=== PATIENT | male | born 1950 | race Caucasian/White ===

== ENCOUNTER → 2019-09-20 | Outpatient (CLI) | payer OTHER ==
[~2019-09-20] MED LIST: Aspirin EC81 MG; Glucophage1000 MG; INSULANPEN
[2019-09-20 12:03] LABS: BASOPHILS ABSOLUTE AUTO 0.01 K/mm3 (0.00-0.23); BASOPHILS PERCENT AUTO 0 % (0-2); EOSINOPHILS PERCENT AUTO 0 % (0-6); Hematocrit 39.2 % (37.0-53.0); Hemoglobin 13.6 g/dL (13.5-17.5); IMMATURE GRAN ABSOLUTE AUTO 0.04 K/mm3 (0.00-0.10); IMMATURE GRAN PERCENT AUTO 1 % (0-1); LYMPHOCYTES ABSOLUTE AUTO 0.56 K/mm3 (0.84-5.20); LYMPHOCYTES PERCENT AUTO 11 % (21-46); MONOCYTES ABSOLUTE AUTO 0.36 K/mm3 (0.16-1.47); MONOCYTES PERCENT AUTO 7 % (4-13); Mean Corpuscular HGB 30.5 pg (26.0-34.0); Mean Corpuscular HGB Conc 34.7 g/dL (31.5-36.5); Mean Corpuscular Volume 88 fL (80-100); Mean Platelet Volume 10.1 fL (9.1-12.4); NEUTROPHILS ABSOLUTE AUTO 4.21 K/mm3 (1.96-9.15); NEUTROPHILS PERCENT AUTO 81 % (41-73); Platelet Count 178 K/mm3 (150-400); RDW Coefficient Variation 11.9 % (11.7-14.2); RDW Standard Deviation 37.9 fL (35.1-46.3); Red Blood Cell Count 4.46 M/mm3 (4.30-5.90); White Blood Cell Count 5.18 K/mm3 (4.00-11.30)
== END | disposition home or self-care (01) ==
LOC: LAB SHORT 11:29 → LAB 11:29
PROVIDERS: Registered Nurse Oncology
DX: C34.90 Malignant neoplasm of unspecified part of unspecified bronchus or lung (principal)
CPT/HCPCS: 85025

== ENCOUNTER → 2019-10-17 | Outpatient (CLI) | payer OTHER ==
[~2019-10-17] MED LIST changes: +LINE600 PO; +Nortriptyline H50 MG PO
[2019-10-17 11:33] LABS: Hematocrit 29.2 % (37.0-53.0); Hemoglobin 10.2 g/dL (13.5-17.5); Mean Corpuscular HGB 29.9 pg (26.0-34.0); Mean Corpuscular HGB Conc 34.9 g/dL (31.5-36.5); Mean Corpuscular Volume 86 fL (80-100); Platelet Count 104 K/mm3 (150-400); RDW Coefficient Variation 12.7 % (11.7-14.2); RDW Standard Deviation 37.1 fL (35.1-46.3); Red Blood Cell Count 3.41 M/mm3 (4.30-5.90)
[2019-10-17 11:37] LABS: Alanine Aminotransfer (ALT/SGP 92 U/L (12-78); Albumin, Blood 3.3 g/dL (3.4-5.0); Albumin/Globulin Ratio 0.9 (0.8-1.8); Alk Phos 63 U/L (50-136); Anion Gap 16 mmol/L (6-16); Aspartate Aminotrans (AST/SGOT 48 U/L (12-37); BASOPHILS ABSOLUTE AUTO 0.01 K/mm3 (0.00-0.23); BASOPHILS PERCENT AUTO 2 % (0-2); Bilirubin, Total 1.3 mg/dL (0.1-1.0); Blood Urea Nitrogen 48 mg/dL (8-24); Bun/Creatinine Ratio 44.9 (12.0-20.0); CO2, Blood 20 mmol/L (21-32); Calcium, Blood 8.5 mg/dL (8.5-10.1); Chloride, Blood 96 mmol/L (98-108); Creatinine, Blood 1.07 mg/dL (0.60-1.20); EOSINOPHILS ABSOLUTE AUTO 0.01 K/mm3 (0.00-0.68); EOSINOPHILS PERCENT AUTO 2 % (0-6); Globulin, Blood 3.5 g/dL (2.2-4.0); Glomerular Filtration Rate >60 (60-); Glucose, Blood 299 mg/dL (70-99); IMMATURE GRAN ABSOLUTE AUTO 0.01 K/mm3 (0.00-0.10); IMMATURE GRAN PERCENT AUTO 2 % (0-1); LYMPHOCYTES ABSOLUTE AUTO 0.25 K/mm3 (0.84-5.20); LYMPHOCYTES PERCENT AUTO 38 % (21-46); MONOCYTES ABSOLUTE AUTO 0.08 K/mm3 (0.16-1.47); MONOCYTES PERCENT AUTO 12 % (4-13); NEUTROPHILS PERCENT AUTO 46 % (41-73); Potassium, Blood 4.4 mmol/L (3.5-5.5); Sodium, Blood 132 mmol/L (136-145); Total Protein, Blood 6.8 g/dL (6.4-8.2); White Blood Cell Count 0.66 K/mm3 (4.00-11.30)
== END ==
LOC: LAB SHORT 11:03 → LAB 11:03
PROVIDERS: Internal Medicine Hematology & Oncology
DX: C34.90 Malignant neoplasm of unspecified part of unspecified bronchus or lung (principal)
CPT/HCPCS: 80053; 85025

== ENCOUNTER 2019-10-21 19:20 | Emergency (ER) | payer OTHER ==
[~2019-10-21] VITALS: Ht 182.9 cm; Wt 86.2 kg
[~2019-10-21 19:20] MED LIST changes: -LINE600 PO; -Nortriptyline H50 MG PO
[2019-10-21 20:17] LABS: Hematocrit 26.6 % (37.0-53.0); Hemoglobin 9.5 g/dL (13.5-17.5); Mean Corpuscular HGB 30.1 pg (26.0-34.0); Mean Corpuscular HGB Conc 35.7 g/dL (31.5-36.5); Mean Platelet Volume 12.6 fL (9.1-12.4); RDW Coefficient Variation 12.4 % (11.7-14.2); RDW Standard Deviation 37.2 fL (35.1-46.3); Red Blood Cell Count 3.16 M/mm3 (4.30-5.90); White Blood Cell Count 5.13 K/mm3 (4.00-11.30)
[2019-10-21 20:18] LABS: Mean Corpuscular Volume 84 fL (80-100)
[2019-10-21 20:19] LABS: Platelet Count 35 K/mm3 (150-400)
[2019-10-21] MEDS ORDERED: Nortriptyline H50 MG PO (20:30)
[2019-10-21] MEDS ORDERED: LINE600 PO (20:32)
[2019-10-21 20:33] LABS: Alanine Aminotransfer (ALT/SGP 87 U/L (12-78); Albumin, Blood 3.3 g/dL (3.4-5.0); Alk Phos 67 U/L (50-136); Anion Gap 12 mmol/L (6-16); Aspartate Aminotrans (AST/SGOT 39 U/L (12-37); Bilirubin, Total 0.6 mg/dL (0.1-1.0); Blood Urea Nitrogen 33 mg/dL (8-24); CO2, Blood 22 mmol/L (21-32); Calcium, Blood 8.1 mg/dL (8.5-10.1); Chloride, Blood 100 mmol/L (98-108); Creatinine, Blood 0.94 mg/dL (0.60-1.20); Globulin, Blood 3.3 g/dL (2.2-4.0); Glomerular Filtration Rate >60 (60-); Glucose, Blood 149 mg/dL (70-99); Potassium, Blood 3.6 mmol/L (3.5-5.5); Sodium, Blood 134 mmol/L (136-145); Total Protein, Blood 6.6 g/dL (6.4-8.2)
[2019-10-21 20:51] LABS: Troponin I <0.015 ng/mL (0.000-0.040)
[2019-10-21 20:53] LABS: Magnesium, Blood 1.1 mg/dL (1.6-2.4)
[2019-10-21 20:55] LABS: BAND PERCENT MAN 6 % (0-8); BASOPHILS PERCENT MAN 0 % (0-2); EOSINOPHILS ABSOLUTE MAN 0.15 K/mm3 (0.00-0.68); EOSINOPHILS PERCENT MAN 3 % (0-6); LYMPHOCYTES ABSOLUTE MAN 1.28 K/mm3 (0.84-5.20); LYMPHOCYTES PERCENT MAN 25 % (21-46); MONOCYTES ABSOLUTE MAN 0.35 K/mm3 (0.16-1.47); MONOCYTES PERCENT MAN 7 % (4-13); NEUTROPHILS ABSOLUTE MAN 3.33 K/mm3 (1.96-9.15); SEG NEUTROPHILS PERCENT MAN 59 % (41-73); TOTAL CELLS COUNTED 100
[2019-10-21 21:36] LABS: Influenza A Negative (NEGATIVE); Influenza B Negative (NEGATIVE)
[2019-10-21 22:53] LABS: Source, Urine Clean Catch
[2019-10-21 22:55] LABS: Bilirubin, Urine Neg (Neg); Blood, Urine Neg (Neg); Glucose Qualitative, Urine Neg (Neg); Ketones, Urine 1+ (Neg); Leukocyte Esterase, Urine Neg (Neg); Nitrite, Urine Neg (Neg); Protein, Urine Neg (Neg); Specific Gravity, Urine 1.015 (1.003-1.022); Urobilinogen, Urine 1+ (Normal)
[2019-10-21 23:00] LABS: Appearance, Urine Clear (Clear); Color, Urine Yellow (P-Yellow)
== END 2019-10-22 00:41 | disposition home or self-care (01) ==
LOC: ER 19:20
PROVIDERS: Emergency Medicine; Physician Assistant
DX: E86.0 Dehydration (principal); E11.9 Type 2 diabetes mellitus without complications; Z79.4 Long term (current) use of insulin; Z88.0 Allergy status to penicillin
CPT/HCPCS: 36415; 71046; 80053; 81003; 83605; 83735; 83880; 84145; 84484; 85025; 87804; 93005; 93010; 96361; 96365; 96366; 99284-25; J3475; J7030

== ENCOUNTER 2019-10-31 03:21 | Observation (INO) | payer OTHER ==
[~2019-10-31] VITALS: Ht 180.3 cm; Wt 89.1 kg
[~2019-10-31 03:21] MED LIST changes: -Aspirin EC81 MG; +Aspirin EC81 MG PO; -Glucophage1000 MG; +Glucophage1000 MG PO; -INSULANPEN; +INSULANPEN SC; +LINE600 PO; +Nortriptyline H50 MG PO
[2019-10-31 03:57] LABS: BASOPHILS ABSOLUTE AUTO 0.02 K/mm3 (0.00-0.23); BASOPHILS PERCENT AUTO 0 % (0-2); EOSINOPHILS ABSOLUTE AUTO 0.04 K/mm3 (0.00-0.68); EOSINOPHILS PERCENT AUTO 1 % (0-6); Hematocrit 20.8 % (37.0-53.0); Hemoglobin 7.2 g/dL (13.5-17.5); IMMATURE GRAN ABSOLUTE AUTO 0.25 K/mm3 (0.00-0.10); IMMATURE GRAN PERCENT AUTO 5 % (0-1); LYMPHOCYTES ABSOLUTE AUTO 1.02 K/mm3 (0.84-5.20); LYMPHOCYTES PERCENT AUTO 20 % (21-46); MONOCYTES ABSOLUTE AUTO 0.65 K/mm3 (0.16-1.47); MONOCYTES PERCENT AUTO 13 % (4-13); Mean Corpuscular HGB 31.2 pg (26.0-34.0); Mean Corpuscular HGB Conc 34.6 g/dL (31.5-36.5); Mean Corpuscular Volume 90 fL (80-100); Mean Platelet Volume 9.7 fL (9.1-12.4); NEUTROPHILS ABSOLUTE AUTO 3.19 K/mm3 (1.96-9.15); NEUTROPHILS PERCENT AUTO 62 % (41-73); NRBC ABSOLUTE 0.03 K/mm3 (0.00-0.02); NRBC Auto 0.6 /100 WBC (0.0-0.2); Platelet Count 120 K/mm3 (150-400); RDW Coefficient Variation 15.3 % (11.7-14.2); RDW Standard Deviation 39.8 fL (35.1-46.3); Red Blood Cell Count 2.31 M/mm3 (4.30-5.90); White Blood Cell Count 5.17 K/mm3 (4.00-11.30)
[2019-10-31 04:18] LABS: Alanine Aminotransfer (ALT/SGP 54 U/L (12-78); Albumin, Blood 2.8 g/dL (3.4-5.0); Albumin/Globulin Ratio 0.8 (0.8-1.8); Alk Phos 65 U/L (50-136); Anion Gap 9 mmol/L (6-16); Aspartate Aminotrans (AST/SGOT 38 U/L (12-37); Bilirubin, Total 0.5 mg/dL (0.1-1.0); Blood Urea Nitrogen 18 mg/dL (8-24); Bun/Creatinine Ratio 21.3 (12.0-20.0); CO2, Blood 27 mmol/L (21-32); Calcium, Blood 7.6 mg/dL (8.5-10.1); Chloride, Blood 102 mmol/L (98-108); Creatinine, Blood 0.85 mg/dL (0.60-1.20); Globulin, Blood 3.5 g/dL (2.2-4.0); Glomerular Filtration Rate >60 (60-); Glucose, Blood 142 mg/dL (70-99); Potassium, Blood 3.7 mmol/L (3.5-5.5); Sodium, Blood 138 mmol/L (136-145); Total Protein, Blood 6.3 g/dL (6.4-8.2); Troponin I <0.015 ng/mL (0.000-0.040)
[2019-10-31 07:50] LABS: Source, Urine Clean Catch
[2019-10-31 07:54] LABS: Adenovirus Not Detected (NOT DETECT); Bordetella pertussis Not Detected (NOT DETECT); Chlamydophila pneumoniae Not Detected (NOT DETECT); Coronavirus 229E Not Detected (NOT DETECT); Coronavirus HKU1 Not Detected (NOT DETECT); Coronavirus NL63 Not Detected (NOT DETECT); Coronavirus OC43 Not Detected (NOT DETECT); Human Metapneumovirus Not Detected (NOT DETECT); Human Rhinovirus/Enterovirus Not Detected (NOT DETECT); Influenza A/2009-H1 Not Detected (NOT DETECT); Influenza A/H1 Not Detected (NOT DETECT); Influenza A/H3 Not Detected (NOT DETECT); Influenza B Not Detected (NOT DETECT); Parainfluenza Virus 1 Not Detected (NOT DETECT); Parainfluenza Virus 2 Not Detected (NOT DETECT); Parainfluenza Virus 3 Not Detected (NOT DETECT); Parainfluenza Virus 4 Not Detected (NOT DETECT); Respiratory Syncytial Virus Not Detected (NOT DETECT)
[2019-10-31 07:55] LABS: Mycoplasma pneumoniae Not Detected (NOT DETECT)
[2019-10-31 07:56] LABS: Bilirubin, Urine Neg (Neg); Blood, Urine Neg (Neg); Glucose Qualitative, Urine Neg (Neg); Ketones, Urine Neg (Neg); Leukocyte Esterase, Urine Neg (Neg); Nitrite, Urine Neg (Neg); Protein, Urine Neg (Neg); Urobilinogen, Urine 1+ (Normal)
[2019-10-31 07:57] LABS: Appearance, Urine Clear (Clear); Color, Urine Yellow (P-Yellow)
[2019-10-31] MEDS ORDERED: SILD50TA PO (11:59)
[2019-10-31] MEDS ORDERED: LISI5 PO (11:59)
[2019-10-31] MEDS ORDERED: IBUP200 PO (12:00)
[2019-10-31] MEDS ORDERED: BASAGLAR K100 UNIT/1 SL (14:32)
[2019-10-31] MEDS ORDERED: ALBU90OI INH (14:33)
--- NOTE | 2019-10-31 20:05 | NUR ---
a+o, here for temp spike at home, afebrile here, call light in reach, bolus given, bed in low position, will order retake of lactic acid for this evening, called for cv, bsr shared with noc nurse
[2019-11-01 04:58] LABS: BASOPHILS ABSOLUTE AUTO 0.01 K/mm3 (0.00-0.23); BASOPHILS PERCENT AUTO 0 % (0-2); EOSINOPHILS ABSOLUTE AUTO 0.01 K/mm3 (0.00-0.68); EOSINOPHILS PERCENT AUTO 0 % (0-6); Hematocrit 21.3 % (37.0-53.0); Hemoglobin 7.2 g/dL (13.5-17.5); IMMATURE GRAN ABSOLUTE AUTO 0.23 K/mm3 (0.00-0.10); IMMATURE GRAN PERCENT AUTO 5 % (0-1); LYMPHOCYTES ABSOLUTE AUTO 0.91 K/mm3 (0.84-5.20); LYMPHOCYTES PERCENT AUTO 20 % (21-46); MONOCYTES ABSOLUTE AUTO 0.56 K/mm3 (0.16-1.47); MONOCYTES PERCENT AUTO 12 % (4-13); Mean Corpuscular HGB 30.4 pg (26.0-34.0); Mean Corpuscular HGB Conc 33.8 g/dL (31.5-36.5); Mean Corpuscular Volume 90 fL (80-100); Mean Platelet Volume 9.7 fL (9.1-12.4); NEUTROPHILS ABSOLUTE AUTO 2.85 K/mm3 (1.96-9.15); NEUTROPHILS PERCENT AUTO 62 % (41-73); Platelet Count 119 K/mm3 (150-400); RDW Coefficient Variation 15.7 % (11.7-14.2); RDW Standard Deviation 40.7 fL (35.1-46.3); Red Blood Cell Count 2.37 M/mm3 (4.30-5.90); White Blood Cell Count 4.57 K/mm3 (4.00-11.30)
[2019-11-01 05:19] LABS: Alanine Aminotransfer (ALT/SGP 44 U/L (12-78); Albumin, Blood 2.4 g/dL (3.4-5.0); Albumin/Globulin Ratio 0.8 (0.8-1.8); Alk Phos 56 U/L (50-136); Anion Gap 7 mmol/L (6-16); Aspartate Aminotrans (AST/SGOT 23 U/L (12-37); Bilirubin, Total 0.5 mg/dL (0.1-1.0); Blood Urea Nitrogen 16 mg/dL (8-24); Bun/Creatinine Ratio 20.2 (12.0-20.0); CO2, Blood 26 mmol/L (21-32); Calcium, Blood 7.5 mg/dL (8.5-10.1); Chloride, Blood 108 mmol/L (98-108); Creatinine, Blood 0.79 mg/dL (0.60-1.20); Globulin, Blood 3.2 g/dL (2.2-4.0); Glomerular Filtration Rate >60 (60-); Glucose, Blood 111 mg/dL (70-99); Magnesium, Blood 1.4 mg/dL (1.6-2.4); Sodium, Blood 141 mmol/L (136-145); Total Protein, Blood 5.6 g/dL (6.4-8.2)
--- NOTE | 2019-11-01 08:51 | NUR ---
A+O, BED IN LOW POSITION, CALL LIGHT IN REACH, NO TEMP, LOOSE STOOL NOT ABLE TO COLLECT DUE TO MIXING WITH URINE, HAT AND URINAL IN PLACE, COLLECTED RESP SAMPLE, MEDICATED PRESCRIBED DENIES PAIN, WILL CONTINUE TO MONITOR AND TREAT
[2019-11-01 10:07] LABS: Source, Urine Clean Catch
[2019-11-01 10:34] LABS: Adenovirus Not Detected (NOT DETECT); Bordetella pertussis Not Detected (NOT DETECT); Chlamydophila pneumoniae Not Detected (NOT DETECT); Coronavirus 229E Not Detected (NOT DETECT); Coronavirus HKU1 Not Detected (NOT DETECT); Coronavirus NL63 Not Detected (NOT DETECT); Coronavirus OC43 Not Detected (NOT DETECT); Human Metapneumovirus Not Detected (NOT DETECT); Human Rhinovirus/Enterovirus Not Detected (NOT DETECT); Influenza A/2009-H1 Not Detected (NOT DETECT); Influenza A/H1 Not Detected (NOT DETECT); Influenza A/H3 Not Detected (NOT DETECT); Influenza B Not Detected (NOT DETECT); Mycoplasma pneumoniae Not Detected (NOT DETECT); Parainfluenza Virus 1 Not Detected (NOT DETECT); Parainfluenza Virus 2 Not Detected (NOT DETECT); Parainfluenza Virus 3 Not Detected (NOT DETECT); Parainfluenza Virus 4 Not Detected (NOT DETECT); Respiratory Syncytial Virus Not Detected (NOT DETECT)
[2019-11-01 10:39] LABS: Appearance, Urine Clear (Clear); Bilirubin, Urine Neg (Neg); Blood, Urine Neg (Neg); Color, Urine Yellow (P-Yellow); Glucose Qualitative, Urine 1+ (Neg); Ketones, Urine Neg (Neg); Leukocyte Esterase, Urine Neg (Neg); Nitrite, Urine Neg (Neg); Protein, Urine Neg (Neg); Urobilinogen, Urine NORM (Normal); pH, Urine 6.5 (5.0-8.0)
[2019-11-01] MEDS ORDERED: CEFD300 PO (12:25)
--- NOTE | 2019-11-01 16:27 | NUR ---
A+O, REVIEWED discharge instructions, medications, hospital stay and expectations, discussed home safety and self care, provided written discharge information for home, family escorted pt to car
== END 2019-11-01 16:24 | disposition home or self-care (01) ==
LOC: ER 03:21 → ERHOLD 03:22 → MEDS 14:02 → ENPENDDIS 11-01 10:19 → MEDS 11-01 16:24
PROVIDERS: Emergency Medicine; Nurse Practitioner Acute Care; ADMIT Hospitalist
DX: R50.9 Fever, unspecified (principal); R00.0 Tachycardia, unspecified; D64.9 Anemia, unspecified; E83.42 Hypomagnesemia; E86.0 Dehydration; C34.90 Malignant neoplasm of unspecified part of unspecified bronchus or lung; E11.9 Type 2 diabetes mellitus without complications; Z79.4 Long term (current) use of insulin; Z79.82 Long term (current) use of aspirin; Z79.899 Other long term (current) drug therapy; Z88.0 Allergy status to penicillin; Z87.891 Personal history of nicotine dependence
CPT/HCPCS: 0099U; 36415; 71045; 80053; 81003; 82947; 83605; 83735; 84145; 84484; 85025; 86850; 86900; 86901; 86923; 93005; 93010; 96361; 96365; 96366; 96367; 96375; 96376; 99285-25; A9270-GY; G0378; J0692; J0696; J3370; J3475; J7030; P9016

== ENCOUNTER 2019-11-12 20:07 | Inpatient (IN) | payer OTHER ==
[~2019-11-12] VITALS: Ht 182.9 cm; Wt 86.8 kg
[~2019-11-12 20:07] MED LIST changes: +ALBU90OI INH; +BASAGLAR K100 UNIT/1 SL; +CEFD300 PO; +IBUP200 PO; +LISI5 PO; +SILD50TA PO
[2019-11-12 20:50] LABS: BASOPHILS ABSOLUTE AUTO 0.01 K/mm3 (0.00-0.23); BASOPHILS PERCENT AUTO 0 % (0-2); EOSINOPHILS ABSOLUTE AUTO 0.04 K/mm3 (0.00-0.68); EOSINOPHILS PERCENT AUTO 1 % (0-6); Hematocrit 29.6 % (37.0-53.0); Hemoglobin 10.1 g/dL (13.5-17.5); IMMATURE GRAN ABSOLUTE AUTO 0.28 K/mm3 (0.00-0.10); IMMATURE GRAN PERCENT AUTO 6 % (0-1); LYMPHOCYTES ABSOLUTE AUTO 0.91 K/mm3 (0.84-5.20); LYMPHOCYTES PERCENT AUTO 18 % (21-46); MONOCYTES ABSOLUTE AUTO 0.13 K/mm3 (0.16-1.47); MONOCYTES PERCENT AUTO 3 % (4-13); Mean Corpuscular HGB 31.9 pg (26.0-34.0); Mean Corpuscular HGB Conc 34.1 g/dL (31.5-36.5); Mean Corpuscular Volume 93 fL (80-100); Mean Platelet Volume 10.5 fL (9.1-12.4); NEUTROPHILS ABSOLUTE AUTO 3.65 K/mm3 (1.96-9.15); NEUTROPHILS PERCENT AUTO 73 % (41-73); Platelet Count 130 K/mm3 (150-400); RDW Coefficient Variation 18.5 % (11.7-14.2); RDW Standard Deviation 60.2 fL (35.1-46.3); Red Blood Cell Count 3.17 M/mm3 (4.30-5.90); White Blood Cell Count 5.02 K/mm3 (4.00-11.30)
[2019-11-12 21:06] LABS: International Normalized Ratio 0.96; Prothrombin Time Results 10.3 Sec (9.7-11.5)
[2019-11-12 21:10] LABS: Alanine Aminotransfer (ALT/SGP 81 U/L (12-78); Albumin, Blood 3.2 g/dL (3.4-5.0); Albumin/Globulin Ratio 0.9 (0.8-1.8); Alk Phos 86 U/L (50-136); Anion Gap 9 mmol/L (6-16); Aspartate Aminotrans (AST/SGOT 34 U/L (12-37); Bilirubin, Total 0.5 mg/dL (0.1-1.0); Blood Urea Nitrogen 28 mg/dL (8-24); Bun/Creatinine Ratio 29.4 (12.0-20.0); CO2, Blood 26 mmol/L (21-32); Calcium, Blood 8.4 mg/dL (8.5-10.1); Chloride, Blood 101 mmol/L (98-108); Creatinine, Blood 0.95 mg/dL (0.60-1.20); Globulin, Blood 3.6 g/dL (2.2-4.0); Glomerular Filtration Rate >60 (60-); Glucose, Blood 257 mg/dL (70-99); Potassium, Blood 3.6 mmol/L (3.5-5.5); Sodium, Blood 136 mmol/L (136-145); Total Protein, Blood 6.8 g/dL (6.4-8.2)
[2019-11-13 00:29] LABS: Source, Urine Clean Catch
[2019-11-13 00:32] LABS: Bilirubin, Urine Neg (Neg); Blood, Urine Neg (Neg); Glucose Qualitative, Urine 2+ (Neg); Ketones, Urine Neg (Neg); Leukocyte Esterase, Urine Neg (Neg); Nitrite, Urine Neg (Neg); Protein, Urine Neg (Neg); Urobilinogen, Urine NORM (Normal)
[2019-11-13 00:36] LABS: Appearance, Urine Clear (Clear); Color, Urine Yellow (P-Yellow)
[2019-11-13 04:32] LABS: BASOPHILS ABSOLUTE AUTO 0.01 K/mm3 (0.00-0.23); BASOPHILS PERCENT AUTO 0 % (0-2); EOSINOPHILS ABSOLUTE AUTO 0.04 K/mm3 (0.00-0.68); EOSINOPHILS PERCENT AUTO 1 % (0-6); Hematocrit 26.3 % (37.0-53.0); Hemoglobin 8.9 g/dL (13.5-17.5); IMMATURE GRAN ABSOLUTE AUTO 0.18 K/mm3 (0.00-0.10); IMMATURE GRAN PERCENT AUTO 7 % (0-1); LYMPHOCYTES ABSOLUTE AUTO 0.81 K/mm3 (0.84-5.20); LYMPHOCYTES PERCENT AUTO 29 % (21-46); MONOCYTES ABSOLUTE AUTO 0.08 K/mm3 (0.16-1.47); MONOCYTES PERCENT AUTO 3 % (4-13); Mean Corpuscular HGB 31.4 pg (26.0-34.0); Mean Corpuscular HGB Conc 33.8 g/dL (31.5-36.5); Mean Corpuscular Volume 93 fL (80-100); Mean Platelet Volume 10.6 fL (9.1-12.4); NEUTROPHILS ABSOLUTE AUTO 1.65 K/mm3 (1.96-9.15); NEUTROPHILS PERCENT AUTO 60 % (41-73); Platelet Count 100 K/mm3 (150-400); RDW Coefficient Variation 18.4 % (11.7-14.2); RDW Standard Deviation 60.4 fL (35.1-46.3); Red Blood Cell Count 2.83 M/mm3 (4.30-5.90); White Blood Cell Count 2.77 K/mm3 (4.00-11.30)
[2019-11-13 04:49] LABS: Anion Gap 9 mmol/L (6-16); Blood Urea Nitrogen 25 mg/dL (8-24); Bun/Creatinine Ratio 32.2 (12.0-20.0); CO2, Blood 27 mmol/L (21-32); Chloride, Blood 102 mmol/L (98-108); Creatinine, Blood 0.78 mg/dL (0.60-1.20); Glomerular Filtration Rate >60 (60-); Glucose, Blood 179 mg/dL (70-99); Potassium, Blood 3.7 mmol/L (3.5-5.5); Sodium, Blood 138 mmol/L (136-145)
--- NOTE | 2019-11-13 05:28 | NUR ---
ASSUMED CARE OF PATIENT AT APPROXIMATELY 0010 FROM ED DEANNA Zamora PATIENT ARRIVED TO UNIT VIA STRETCHER; SBA FROM ED TO PCU STRETCHER; PATIENT UNSTEADY REPORTEDLY SINCE STARTING CHEMO TREATMENTS. PATIENT DENIES PAIN, NUMBNESS, TINGLING, DIZZINESS OR NAUSEA. PATIENT REPORTS HE HAS "CHEMO HEAD". ADMISSION COMPLETE. AFEBRILE. NS BOLUS THEN LR PER ORDER. UA AND RESP PANEL SENT. VSS. PATIENT REPROTS HE USES CANE OR WHEELCHAIR AT HOME. IN ISOLATION TO R/O COVID. PATIENT CURRENTLY RESTING IN BED; CALL LIGHT IN REACH; BED IN LOWEST POSISTION; BED ALARM ON; WILL CONTINUE TO MONITOR AND ASSESS UNTIL END OF SHIFT.
[2019-11-13 06:23] LABS: Adenovirus Not Detected (NOT DETECT); Bordetella pertussis Not Detected (NOT DETECT); Chlamydophila pneumoniae Not Detected (NOT DETECT); Coronavirus 229E Not Detected (NOT DETECT); Coronavirus HKU1 Not Detected (NOT DETECT); Coronavirus NL63 Not Detected (NOT DETECT); Coronavirus OC43 Not Detected (NOT DETECT); Human Metapneumovirus Not Detected (NOT DETECT); Human Rhinovirus/Enterovirus Not Detected (NOT DETECT); Influenza A/2009-H1 Not Detected (NOT DETECT); Influenza A/H1 Not Detected (NOT DETECT); Influenza A/H3 Not Detected (NOT DETECT); Influenza B Not Detected (NOT DETECT); Mycoplasma pneumoniae Not Detected (NOT DETECT); Parainfluenza Virus 1 Not Detected (NOT DETECT); Parainfluenza Virus 2 Not Detected (NOT DETECT); Parainfluenza Virus 3 Not Detected (NOT DETECT); Parainfluenza Virus 4 Not Detected (NOT DETECT); Respiratory Syncytial Virus Not Detected (NOT DETECT)
--- NOTE | 2019-11-13 10:58 | NUR ---
PT OFF TO IMAGING AT THIS TIME TO GET CT OF THE CHEST SCAN DONE.
--- NOTE | 2019-11-13 13:48 | NUR ---
PT SUMMARY: PT CT SCAN OF THE CHEST DONE TODAY RESULT SHOWS RLL OPACITIES SUGGESTING MULTIFOCAL PNA, RUL MASS DECREASED IN SIZE FROM LAST CHEST CT. PT STARTED ON IV LEVAQUIN 750MG QDAILY. PT C/O SLIGHT DIZZINESS WITH MOVEMENTS PT STATES THIS IS PRETTY COMMON FOR HIM SINCE HE'S DOING CHEMO RADIATION THERAPY FOR LUNG CA. NO C/O PAIN. VITALS HAS BEEN STABLE HRR SINUS TACH ON 100, O2 SATS ABOVE 90% ON ROOMAIR, SLIGHT DYSPNEA WITH EXERTION. NO OTHER ISSUES REPORTED, NO FEVER EPISODES. LR @100MLS/HR CURRENTLY RUNNING. PT REPORTED 2 NORMAL BMS, VOIDING WITH ADEQUATE AMOUNT OF URINE. WILL CONTINUE TO MONITOR
--- NOTE | 2019-11-13 22:44 | NUR ---
ASSUMED CARE OF PATIENT AT APPROXIMATELY [address] RN. PATIENT ALERT AND ORIENTED X; SLOW TO RESPOND AT TIMES; IMPULSIVE AT TIMES WHEN HE NEEDS TO URINATE; SETS BED ALARM OFF. PATIENT DENIES PAIN, NUMBNESS, TINGLING, DIZZINESS OR NAUSEA. ONE ASSIST OUT OF BED W/ FWW; NEEDS ASSISTANCE MOVING IV POLE. DISCUSSED STOPPING FLUIDS WITH VIET WAITE; NO ORDERS RECIEVED. IN ISOLATION TO R/O COVID. IVF INFUSING PER ORDER. PATIENT CURRENTLY RESTING IN BED; CALL LIGHT IN REACH; BED IN LOWEST POSISTION; BED ALARM ON; WILL CONTINUE TO MONITOR AND ASSESS UNTIL END OF SHIFT.
[2019-11-14 04:10] LABS: Hematocrit 22.5 % (37.0-53.0); Hemoglobin 7.8 g/dL (13.5-17.5); Mean Corpuscular HGB 32.1 pg (26.0-34.0); Mean Corpuscular HGB Conc 34.7 g/dL (31.5-36.5); Mean Corpuscular Volume 93 fL (80-100); Mean Platelet Volume 10.9 fL (9.1-12.4); Platelet Count 71 K/mm3 (150-400); RDW Coefficient Variation 17.7 % (11.7-14.2); RDW Standard Deviation 58.3 fL (35.1-46.3); Red Blood Cell Count 2.43 M/mm3 (4.30-5.90)
[2019-11-14 04:13] LABS: BASOPHILS ABSOLUTE AUTO 0.01 K/mm3 (0.00-0.23); BASOPHILS PERCENT AUTO 1 % (0-2); EOSINOPHILS ABSOLUTE AUTO 0.01 K/mm3 (0.00-0.68); EOSINOPHILS PERCENT AUTO 1 % (0-6); IMMATURE GRAN PERCENT AUTO 0 % (0-1); LYMPHOCYTES ABSOLUTE AUTO 0.53 K/mm3 (0.84-5.20); LYMPHOCYTES PERCENT AUTO 59 % (21-46); MONOCYTES ABSOLUTE AUTO 0.09 K/mm3 (0.16-1.47); MONOCYTES PERCENT AUTO 10 % (4-13); NEUTROPHILS ABSOLUTE AUTO 0.26 K/mm3 (1.96-9.15); NEUTROPHILS PERCENT AUTO 29 % (41-73)
[2019-11-14 04:24] LABS: Albumin, Blood 2.7 g/dL (3.4-5.0); Anion Gap 7 mmol/L (6-16); Blood Urea Nitrogen 21 mg/dL (8-24); Bun/Creatinine Ratio 28.5 (12.0-20.0); CO2, Blood 29 mmol/L (21-32); Calcium, Blood 8.3 mg/dL (8.5-10.1); Chloride, Blood 102 mmol/L (98-108); Creatinine, Blood 0.74 mg/dL (0.60-1.20); Glomerular Filtration Rate >60 (60-); Glucose, Blood 157 mg/dL (70-99); Phosphorus, Blood 3.4 mg/dL (2.5-4.9); Potassium, Blood 3.7 mmol/L (3.5-5.5); Sodium, Blood 138 mmol/L (136-145)
--- NOTE | 2019-11-14 05:19 | NUR ---
PATIENT SLEPT ABOUT SEVEN HOURS[address]. VALDEZ TO REPORT WBC OF 0.9; PATIENT IN DROPLET CONTACT ISOLATION TO R/O COVID ALREADY; NEUTROPENIC PRECAUTIONS PLACED ON DIET ORDER; ALSO UPDATED DRNeema ON HEMOGLOBIN DROP TO 7.8; CONTINUE TO MONITOR FOR NOW; ALSO CAN D/C LR AT 100ML/HR. WILL CONTINUE TO MONITOR AND ASSESS UNTIL END OF SHIFT.
--- NOTE | 2019-11-14 06:31 | NUR ---
NO ACUTE CHANGES TO REPORT. VSS. WILL CONTINUE TO MONITOR AND ASSESS UNTIL END OF SHIFT.
--- NOTE | 2019-11-14 18:39 | NUR ---
PT SUMMARY: PT ALERT TO BASELINE, CURRENTLY ON IV LEVAQUIN FOR RLL PNA. AFEBRILE FOR THE SHIFT, HR INCREASES WITH EXERTION, RESTING HR SR 80'S, PT DENIES ANY CHEST PAIN, LUNGS DIMINISHED. STILL PENDING COVID TESTS. PT STILL HAS SLIGHT DIZZINESS UPON STANDING UP SYSTOLIC BP 110'S FOR THE SHIFT PT WAS ENCOURAGED TO TAKE TIME SITTING ON THE SIDE OF THE BED AND DANGLE LEGS PRIOR TO STANDING UP, PT AGREED. PT STATED HE'S FINE AND COMFORTABLE WITHOUT DIZZINESS WHEN RESTING AND LAYING IN BED, PT ALSO ENCOURAGED TO GET UP AND GO TO THE BATHROOM ASSISTED FOR STRENGTHENING. DR BRADY SAW PT THIS MORNING MIGHT TAKE COUPLE MORE DAYS BEFORE PT DISCHARGES AND WAIT TIL WBC GOES UP TO PT'S BASELINE. WILL GIVE REPORT TO ONCOMING SHIFT.
[2019-11-15 04:10] LABS: BASOPHILS ABSOLUTE AUTO 0.03 K/mm3 (0.00-0.23); BASOPHILS PERCENT AUTO 1 % (0-2); Hemoglobin 8.1 g/dL (13.5-17.5); LYMPHOCYTES ABSOLUTE AUTO 0.89 K/mm3 (0.84-5.20); LYMPHOCYTES PERCENT AUTO 32 % (21-46); MONOCYTES ABSOLUTE AUTO 0.32 K/mm3 (0.16-1.47); MONOCYTES PERCENT AUTO 11 % (4-13); Mean Corpuscular HGB 32.1 pg (26.0-34.0); Mean Corpuscular HGB Conc 35.2 g/dL (31.5-36.5); Mean Corpuscular Volume 91 fL (80-100); Mean Platelet Volume 10.5 fL (9.1-12.4); Platelet Count 57 K/mm3 (150-400); RDW Coefficient Variation 17.1 % (11.7-14.2); RDW Standard Deviation 55.2 fL (35.1-46.3); Red Blood Cell Count 2.52 M/mm3 (4.30-5.90); White Blood Cell Count 2.81 K/mm3 (4.00-11.30)
[2019-11-15 04:15] LABS: EOSINOPHILS ABSOLUTE AUTO 0.02 K/mm3 (0.00-0.68); EOSINOPHILS PERCENT AUTO 1 % (0-6); IMMATURE GRAN ABSOLUTE AUTO 0.04 K/mm3 (0.00-0.10); IMMATURE GRAN PERCENT AUTO 1 % (0-1); NEUTROPHILS ABSOLUTE AUTO 1.51 K/mm3 (1.96-9.15); NEUTROPHILS PERCENT AUTO 54 % (41-73)
[2019-11-15 04:22] LABS: Anion Gap 7 mmol/L (6-16); Blood Urea Nitrogen 24 mg/dL (8-24); Bun/Creatinine Ratio 28.7 (12.0-20.0); CO2, Blood 28 mmol/L (21-32); Calcium, Blood 8.6 mg/dL (8.5-10.1); Chloride, Blood 101 mmol/L (98-108); Creatinine, Blood 0.84 mg/dL (0.60-1.20); Glomerular Filtration Rate >60 (60-); Glucose, Blood 144 mg/dL (70-99); Phosphorus, Blood 3.9 mg/dL (2.5-4.9); Potassium, Blood 3.7 mmol/L (3.5-5.5); Sodium, Blood 136 mmol/L (136-145)
[2019-11-15 04:30] LABS: BAND PERCENT MAN 5 % (0-8); BASOPHILS PERCENT MAN 0 % (0-2); EOSINOPHILS ABSOLUTE MAN 0.02 K/mm3 (0.00-0.68); EOSINOPHILS PERCENT MAN 1 % (0-6); LYMPHOCYTES ABSOLUTE MAN 1.06 K/mm3 (0.84-5.20); LYMPHOCYTES PERCENT MAN 38 % (21-46); MONOCYTES PERCENT MAN 11 % (4-13); SEG NEUTROPHILS PERCENT MAN 45 % (41-73); TOTAL CELLS COUNTED 100
--- NOTE | 2019-11-15 05:54 | NUR ---
SHIFT SUMMARY PT SLEEPING IN ROOM COMFORTABLY AT THIS TIME. NO ACUTE CHANGES IN STATUS T/O NIGHT. PT SLEPT WELL T/O NIGHT. GOT UP TO RR W/ 4WW SEVERAL TIME DURING NIGHT. RESP EVEN UNLABORED ON RA W SATS >92%. PT DENIED PAIN T/O NIGHT. DURING SHIFT LAB CALLED TO CONFIRM CODIV NEGATIVE. ENHANCED ISO PRECAUTIONS REMOVED, PT REMAINS ON NEUTROPENIC PRECAUTIONS. ALTHOUGH WBC CAME UP CONSIDERABLY WITH AM LABS. PT DENIED OTHER NEEDS. CALL LIGHT IN REACH.
--- NOTE | 2019-11-15 14:42 | NUR ---
DISCHARGE SUMMARY PATIENT INDPENDENT TO SBA IN ROOM. RESP E/U ON ROOM AIR. PATIENT DENIES ANY ACUTE PAIN. PATIENT MED NO TELE. REPORTED TO MEDICAL FLOOR RN HARMAN Shea PATIENT TO LEAVE UNIT VIA WHEEL CHAIR TO ROOM 309.
--- NOTE | 2019-11-15 15:48 | NUR ---
PATIENT ARRIVES MEDICAL FLOOR VIA W/C ABOUT 1440. ALERT. ORIENTED. STEADY GAIT, BUT WEAK. USES CANE OR 4WW. R.A. UNLABORED RESPIRATIONS. LUNGS CLEAR. LAST RADIATION FOR LUNG CA WAS 10/17/19 AND LAST ROUND OF CHEMO WAS 11/11/19. PLEASANT. COOPERATIVE. ORIENTED TO ROOM AND CALL LIGHT. INDEPENDENT IN ROOM. DOOR KEPT CLOSED FOR NEUTROPENIC PRECAUTIONS. [facility]
--- NOTE | 2019-11-16 03:10 | NUR ---
Pt alert and oriented x 4. Cheerful affect when communicating with staff. Has been resting quietly with few interruptions until this las rounding, which found pt up to the bathroom. Stated he was "fine". No noted acute distress. Neutropenic precautions maintained. Call light in reach. Will continue to monitor.
[2019-11-16 09:31] LABS: Hematocrit 22.1 % (37.0-53.0); Hemoglobin 7.8 g/dL (13.5-17.5); Mean Corpuscular HGB 32.1 pg (26.0-34.0); Mean Corpuscular HGB Conc 35.3 g/dL (31.5-36.5); Mean Corpuscular Volume 91 fL (80-100); Mean Platelet Volume 10.9 fL (9.1-12.4); RDW Coefficient Variation 16.5 % (11.7-14.2); RDW Standard Deviation 54.4 fL (35.1-46.3); Red Blood Cell Count 2.43 M/mm3 (4.30-5.90); White Blood Cell Count 3.25 K/mm3 (4.00-11.30)
[2019-11-16 09:52] LABS: Platelet Count 43 K/mm3 (150-400)
[2019-11-16 09:53] LABS: Albumin, Blood 3.1 g/dL (3.4-5.0); Anion Gap 5 mmol/L (6-16); Blood Urea Nitrogen 24 mg/dL (8-24); Bun/Creatinine Ratio 29.2 (12.0-20.0); CO2, Blood 30 mmol/L (21-32); Calcium, Blood 8.7 mg/dL (8.5-10.1); Chloride, Blood 99 mmol/L (98-108); Creatinine, Blood 0.82 mg/dL (0.60-1.20); Glomerular Filtration Rate >60 (60-); Glucose, Blood 166 mg/dL (70-99); Phosphorus, Blood 4.2 mg/dL (2.5-4.9); Potassium, Blood 3.6 mmol/L (3.5-5.5); Sodium, Blood 134 mmol/L (136-145)
[2019-11-16 10:01] LABS: BAND PERCENT MAN 1 % (0-8); BASOPHILS PERCENT MAN 0 % (0-2); EOSINOPHILS ABSOLUTE MAN 0.13 K/mm3 (0.00-0.68); EOSINOPHILS PERCENT MAN 4 % (0-6); LYMPHOCYTES ABSOLUTE MAN 0.84 K/mm3 (0.84-5.20); LYMPHOCYTES PERCENT MAN 26 % (21-46); MONOCYTES ABSOLUTE MAN 0.39 K/mm3 (0.16-1.47); MONOCYTES PERCENT MAN 12 % (4-13); NEUTROPHILS ABSOLUTE MAN 1.88 K/mm3 (1.96-9.15); SEG NEUTROPHILS PERCENT MAN 57 % (41-73); TOTAL CELLS COUNTED 100
--- NOTE | 2019-11-16 18:14 | NUR ---
SHIFT SUMMARY PT HAS BEEN SLEEPING A LOT OF THE SHIFT. PT HAD AN EPISODE OF DRY HEAVING WITH SMALL AMOUNT OF EMESIS THIS AM WHEN DR. CERRATO IN TO SEE PT. THIS RN ADMINSTERED IV ZOFRAN PER EMAR. PT REPORTED FEELING BETTER AFTER BUT DID NOT FEEL LIKE EATING HIS LUNCH AND REQUESTED CHICKEN NOODLE SOUP WITH TOAST. PT TOLERATED THIS WELL. NO COMPLAINTS OF PAIN OR SHORTNESS OF BREATH. NO ACUTE CHANGES THIS SHIFT. WILL CONTINUE TO MONITOR AND REPORT TO ONCOMING RN. CALL LIGHT IN REACH.
--- NOTE | 2019-11-17 03:13 | NUR ---
SHIFT SUMMARY ASSUMED CARE PF PT AT 1900. PT IS A/O X4, DENIES N/T IN HIS EXTREMITIES, HEART SOUNDS REGUALR, TELE MONITOR SHOWS SINUS TACH @ 116, DENIES CP AT THIS TIME. R LUNG SOUNDS ARE DIMINISHED, L ARE CLEAR, DENIES SOB AT THIS TIME. PT C/O HAVING AN UPSET STOMACH, HE SAID POSSIBLY FROM TAKING PILLS W/O FOOD, PT RECEIVED A SNACK. PT SLEPT MOST OF THE NIGHT EXCEPT TO USE THE RESTROOM, NO ACUTE EVENTS DURING THE NIGHT. CALL LIGHT IN REACH, BED IN LOWEST POSTITION, WILL CONTINUE TO MONITOR UNTIL DAYSHIFT NURSE ARRIVES.
[2019-11-17 04:20] LABS: BASOPHILS ABSOLUTE AUTO 0.02 K/mm3 (0.00-0.23); BASOPHILS PERCENT AUTO 1 % (0-2); Hematocrit 21.1 % (37.0-53.0); Hemoglobin 7.3 g/dL (13.5-17.5); LYMPHOCYTES PERCENT AUTO 25 % (21-46); MONOCYTES PERCENT AUTO 14 % (4-13); Mean Corpuscular HGB 31.2 pg (26.0-34.0); Mean Corpuscular HGB Conc 34.6 g/dL (31.5-36.5); Mean Corpuscular Volume 90 fL (80-100); Mean Platelet Volume 11.3 fL (9.1-12.4); RDW Coefficient Variation 16.3 % (11.7-14.2); RDW Standard Deviation 53.1 fL (35.1-46.3); Red Blood Cell Count 2.34 M/mm3 (4.30-5.90); White Blood Cell Count 3.62 K/mm3 (4.00-11.30)
[2019-11-17 04:31] LABS: EOSINOPHILS ABSOLUTE AUTO 0.04 K/mm3 (0.00-0.68); EOSINOPHILS PERCENT AUTO 1 % (0-6); IMMATURE GRAN ABSOLUTE AUTO 0.04 K/mm3 (0.00-0.10); IMMATURE GRAN PERCENT AUTO 1 % (0-1); NEUTROPHILS ABSOLUTE AUTO 2.12 K/mm3 (1.96-9.15); NEUTROPHILS PERCENT AUTO 59 % (41-73); Platelet Count 39 K/mm3 (150-400)
[2019-11-17 04:42] LABS: Albumin, Blood 3.1 g/dL (3.4-5.0); Anion Gap 7 mmol/L (6-16); Blood Urea Nitrogen 25 mg/dL (8-24); Bun/Creatinine Ratio 25.5 (12.0-20.0); CO2, Blood 29 mmol/L (21-32); Calcium, Blood 8.5 mg/dL (8.5-10.1); Chloride, Blood 98 mmol/L (98-108); Creatinine, Blood 0.98 mg/dL (0.60-1.20); Glomerular Filtration Rate >60 (60-); Glucose, Blood 185 mg/dL (70-99); Phosphorus, Blood 3.8 mg/dL (2.5-4.9); Potassium, Blood 3.6 mmol/L (3.5-5.5); Sodium, Blood 134 mmol/L (136-145)
--- NOTE | 2019-11-17 15:34 | NUR ---
HE IS NEARLY DONE WITH HIS FIRST OF TWO PACKS OF RBC'S. HE IS SOB AND TIRES QUICKLY WHEN HE AMBULATES TO AND FROM THE BATHROOM WITH 1 ASSIST. WBC'S UP TO 3.6 WITH ANC 2.12. STILL IN NEUTROPENIC PRECAUTIONS WITH HIS DOOR CLOSED. TELE REMAINS SINUS TACH. HE REFUSED PAS. VSS.
--- NOTE | 2019-11-17 16:02 | NUR ---
ASSUMED PATIENT CARE REPORT TAKEN FROM MARIA T HUERTA, I AGREE WITH MARIA T'S SHIFT ASSESSMENT, PT IS A/OX3, PLEASANT AND COOPERATIVE AT THIS TIME, RECIEVING PRBC' AND TOLERATING WELL
--- NOTE | 2019-11-17 16:13 | NUR ---
Patient is lying in bed and alert. Patient is very talkative and tells me about his medical issues, his life history, his family history and his views on hoahaoism. Patient says he is positive about his future and will stay that way until he dies. I listen empathically, normalize patient's experience and provide companionship. I will continue to remainavailable to patient and family.
--- NOTE | 2019-11-17 16:56 | NUR ---
STARTED 2ND UNIT OF PRBC'S, PT APPEARS TO BE TOLERATING WELL, APPEARS TO BE BREATHING EASILY ON RA, VS-WNL
--- NOTE | 2019-11-18 02:59 | NUR ---
SHIFT SUMMARY ASSUMED CARE OF PT AT 1900. PT IS A/O X4, DENIES N/T IN EXTREMITIES. HEART SOUNDS REGULAR, TELE SHOWS SINUS @ 116, DENIES CP AT THIS TIME. LUNG SOUNDS CLEAR, DENIES SOB AT THIS TIME. PT STATES THAT HE HASNT FELT NEASEATED ALL DAY. PT HAD JUST FINISHED RECEIVING LAST UNTI OF PRBC. PT IS INDEPENDENT IN ROOM NO ACUTE EVENTS DURING THE NIGHT. PT SLEPT T/O THE NIGHT WITHOUT ANY COMPLAINTS. CALL LIGHT IN REACH, BED IN LOWEST POSTION, WILL CONTINUE TO MONITOR UNTIL DAYSHIFT NURSE ARRIVES.
[2019-11-18 04:21] LABS: Hematocrit 26.7 % (37.0-53.0); Hemoglobin 9.6 g/dL (13.5-17.5); Mean Corpuscular HGB 31.8 pg (26.0-34.0); Mean Corpuscular Volume 88 fL (80-100); Mean Platelet Volume 11.6 fL (9.1-12.4); RDW Coefficient Variation 15.5 % (11.7-14.2); RDW Standard Deviation 49.4 fL (35.1-46.3); Red Blood Cell Count 3.02 M/mm3 (4.30-5.90); White Blood Cell Count 4.37 K/mm3 (4.00-11.30)
[2019-11-18 04:28] LABS: Platelet Count 35 K/mm3 (150-400)
[2019-11-18 04:41] LABS: BAND PERCENT MAN 6 % (0-8); BASOPHILS PERCENT MAN 0 % (0-2); EOSINOPHILS ABSOLUTE MAN 0.13 K/mm3 (0.00-0.68); EOSINOPHILS PERCENT MAN 3 % (0-6); LYMPHOCYTES ABSOLUTE MAN 1.09 K/mm3 (0.84-5.20); LYMPHOCYTES PERCENT MAN 25 % (21-46); METAMYELOCYTE ABSOLUTE MAN 0.04 K/mm3 (0.00-0.00); METAMYELOCYTE PERCENT MAN 1 % (0-0); MONOCYTES ABSOLUTE MAN 0.43 K/mm3 (0.16-1.47); MONOCYTES PERCENT MAN 10 % (4-13); NEUTROPHILS ABSOLUTE MAN 2.66 K/mm3 (1.96-9.15); SEG NEUTROPHILS PERCENT MAN 55 % (41-73); TOTAL CELLS COUNTED 100
[2019-11-18 04:49] LABS: Albumin, Blood 3.1 g/dL (3.4-5.0); Anion Gap 7 mmol/L (6-16); Blood Urea Nitrogen 22 mg/dL (8-24); Bun/Creatinine Ratio 23.7 (12.0-20.0); CO2, Blood 30 mmol/L (21-32); Calcium, Blood 8.9 mg/dL (8.5-10.1); Chloride, Blood 98 mmol/L (98-108); Creatinine, Blood 0.93 mg/dL (0.60-1.20); Glomerular Filtration Rate >60 (60-); Glucose, Blood 125 mg/dL (70-99); Phosphorus, Blood 4.1 mg/dL (2.5-4.9); Potassium, Blood 3.6 mmol/L (3.5-5.5); Sodium, Blood 135 mmol/L (136-145)
--- NOTE | 2019-11-18 07:30 | NUR ---
CALLED DR BROWN- SPOKE TO ABOUT PT CRITICAL VALUE ON MORNING LABS PLATLET LEVEL CRITICAL AT 35. THIS LAB HAS PREVIOUSLY BEEN CRITICALLY LOW BUT GRACIE WAS LOWER STILL. CALLED AND SHE IS AWARE OF THE VALUE.
[2019-11-18] MEDS ORDERED: LEVO750 PO (10:58)
[2019-11-18] MEDS ORDERED: LACT PO (10:58)
--- NOTE | 2019-11-18 12:07 | NUR ---
DISCHARGE NOTE- PT WAS GIVEN VERBAL AND WRITTEN DISCHARGE INSTRUCTIONS AND ACKNOWLEDGED UNDERSTANDING OF THEM. IV AND TELE DC'D AT THE TIME OF DISCHARGE, TELE SENT BACK TO PCU VIA TUBE. PT STATED HE HAS ALREADY SPOKEN TO HIS PCP OFFICE AND SCHEDULED A FOLLOW UP APPOINTMENT. HARD COPY OF THE ORDER FOR CBC PROVIDED TO THE PT FOR THURSDAY LAB DRAW. CONTACT INFO PROVIDED TO THE PT SHOULD QUESTIONS ARRISE ABOUT HIS DISCHARGE. PT WAS ESCORTED OUT VIA WC BY THE [facility], NO FURTHER QUESTIONS AT THE TIME OF DISCHARGE.
== END 2019-11-18 12:00 | disposition home or self-care (01) | DRG 871 ==
LOC: ER 20:07 → MEDS 22:54 → PCU 11-13 00:02 → ER 11-13 00:02 → MEDS 11-13 00:06 → PCU 11-13 00:06 → MEDS 11-15 15:00 → PCU 11-15 15:00 → MEDS 11-15 15:00
PROVIDERS: Internal Medicine; Nurse Practitioner; ADMIT Family Medicine
PROC: 30233N1 Transfusion of Nonautologous Red Blood Cells into Peripheral Vein, Percutaneous Approach (ICD-10-PCS; principal; 2019-11-17)
DX: A41.9 Sepsis, unspecified organism (principal); J18.9 Pneumonia, unspecified organism; D61.810 Antineoplastic chemotherapy induced pancytopenia; C34.90 Malignant neoplasm of unspecified part of unspecified bronchus or lung; Z03.818 Encounter for observation for suspected exposure to other biological agents ruled out; R65.20 Severe sepsis without septic shock; E83.42 Hypomagnesemia; E11.9 Type 2 diabetes mellitus without complications; I10 Essential (primary) hypertension; R00.0 Tachycardia, unspecified; Z92.3 Personal history of irradiation; Z88.0 Allergy status to penicillin; Z79.82 Long term (current) use of aspirin; Z79.4 Long term (current) use of insulin; Z79.84 Long term (current) use of oral hypoglycemic drugs; Z87.891 Personal history of nicotine dependence
CPT/HCPCS: 0099U; 36415; 36430; 71045; 71260; 74177; 80048; 80053; 80069; 81003; 82728; 82947; 83605; 83615; 83735; 84145; 85025; 85610; 85730; 86140; 86850; 86900; 86901; 86923; 87040; 87070; 87205; 93005; 93010; 96360; 96361; 99285-25; J0696; J1815; J1956; J2405; J3475; J7030; J7120; P9016; Q9967; U0002

== ENCOUNTER → 2020-06-11 | Outpatient (CLI) | payer OTHER ==
[~2020-06-11] MED LIST changes: +LACT PO; +LEVO750 PO
[2020-06-13 15:15] LABS: CORONAVIRUS (COVID19) CSH-NRL Negative (Negative)
== END ==
LOC: LAB EV 13:05 → LAB SHORT 13:05
PROVIDERS: Physician Assistant
DX: R05 Cough (principal); Z20.828 Contact with and (suspected) exposure to other viral communicable diseases
CPT/HCPCS: U0003

== ENCOUNTER → 2020-06-22 | Outpatient (CLI) | payer OTHER ==
[2020-06-22 12:40] LABS: BASOPHILS ABSOLUTE AUTO 0.02 K/mm3 (0.00-0.23); BASOPHILS PERCENT AUTO 0 % (0-2); EOSINOPHILS ABSOLUTE AUTO 0.22 K/mm3 (0.00-0.68); EOSINOPHILS PERCENT AUTO 3 % (0-6); Hematocrit 34.9 % (37.0-53.0); IMMATURE GRAN ABSOLUTE AUTO 0.03 K/mm3 (0.00-0.10); IMMATURE GRAN PERCENT AUTO 1 % (0-1); LYMPHOCYTES ABSOLUTE AUTO 0.94 K/mm3 (0.84-5.20); LYMPHOCYTES PERCENT AUTO 14 % (21-46); MONOCYTES ABSOLUTE AUTO 0.46 K/mm3 (0.16-1.47); MONOCYTES PERCENT AUTO 7 % (4-13); Mean Corpuscular HGB 30.4 pg (26.0-34.0); Mean Corpuscular HGB Conc 34.4 g/dL (31.5-36.5); Mean Corpuscular Volume 88 fL (80-100); Mean Platelet Volume 9.8 fL (9.1-12.4); NEUTROPHILS ABSOLUTE AUTO 4.96 K/mm3 (1.96-9.15); NEUTROPHILS PERCENT AUTO 75 % (41-73); Platelet Count 153 K/mm3 (150-400); RDW Coefficient Variation 11.9 % (11.7-14.2); RDW Standard Deviation 38.6 fL (35.1-46.3); Red Blood Cell Count 3.95 M/mm3 (4.30-5.90); White Blood Cell Count 6.63 K/mm3 (4.00-11.30)
[2020-06-22 12:49] LABS: Alanine Aminotransfer (ALT/SGP 31 U/L (12-78); Albumin, Blood 2.9 g/dL (3.4-5.0); Albumin/Globulin Ratio 0.6 (0.8-1.8); Alk Phos 57 U/L (40-126); Anion Gap 13 mmol/L (6-16); Aspartate Aminotrans (AST/SGOT 23 U/L (12-37); Bilirubin, Total 0.4 mg/dL (0.1-1.0); Blood Urea Nitrogen 15 mg/dL (8-24); Bun/Creatinine Ratio 12.9 (12.0-20.0); CO2, Blood 24 mmol/L (21-32); Calcium, Blood 9.1 mg/dL (8.5-10.1); Chloride, Blood 96 mmol/L (98-108); Creatinine, Blood 1.16 mg/dL (0.60-1.20); Globulin, Blood 5.2 g/dL (2.2-4.0); Glomerular Filtration Rate >60 (60-); Glucose, Blood 148 mg/dL (70-99); Potassium, Blood 3.6 mmol/L (3.5-5.5); Sodium, Blood 133 mmol/L (136-145); Total Protein, Blood 8.1 g/dL (6.4-8.2)
== END | disposition home or self-care (01) ==
LOC: LAB EV 12:33 → LAB SHORT 12:33
PROVIDERS: Physician Assistant
DX: R06.00 Dyspnea, unspecified (principal)
CPT/HCPCS: 80053; 83880; 85025

== ENCOUNTER 2023-03-31 06:50 | Day surgery (SDC) | payer OTHER ==
[~2023-03-31] VITALS: Ht 182.9 cm; Wt 87.9 kg
[~2023-03-31 06:50] MED LIST changes: +MORP15ER PO; +ONDA4ODT MM; +TAMS.4ER PO
[2023-03-31] MEDS ORDERED: METO25ER (07:41)
[2023-03-31] MEDS ORDERED: LISI5 (07:41)
--- NOTE | 2023-03-31 07:53 | NUR ---
03/31/23 0753 Marine Ash TETRACAINE DROP PLACED IN LEFT EYE AT 0740. PLEDGET PLACED IN LEFT EYE AT 0742 PATIENT TOLERATED WELL.
[2023-03-31 08:56] VITALS: BP 97/65
--- NOTE | 2023-03-31 09:18 | NUR ---
03/31/23 0918 Valerie Arenas IV REMOVED. TOLERATED WELL. WNL. CANNULA INTACT. NO COMPLAINTS OF PAIN OR NAUSEA
== END 2023-03-31 09:22 | disposition home or self-care (01) ==
LOC: ORSCSDS 06:50
PROVIDERS: Student in an Organized Health Care Education/Training Program
PROC: 08RK3JZ Replacement of Left Lens with Synthetic Substitute, Percutaneous Approach (ICD-10-PCS; principal; 2023-03-31 08:30)
DX: H25.13 Age-related nuclear cataract, bilateral (principal); E11.36 Type 2 diabetes mellitus with diabetic cataract; J43.9 Emphysema, unspecified; I10 Essential (primary) hypertension; Z79.84 Long term (current) use of oral hypoglycemic drugs; Z87.891 Personal history of nicotine dependence; Z79.4 Long term (current) use of insulin; Z79.899 Other long term (current) drug therapy
CPT/HCPCS: 82947; J2250; J3010; J7040; V2632

== ENCOUNTER → 2023-04-03 | Outpatient (CLI) | payer OTHER ==
[~2023-04-03] MED LIST changes: +LISI5; +METO25ER
[2023-04-03 11:26] LABS: BASOPHILS ABSOLUTE AUTO 0.02 K/mm3 (0.00-0.23); BASOPHILS PERCENT AUTO 0 % (0-2); EOSINOPHILS ABSOLUTE AUTO 0.11 K/mm3 (0.00-0.68); EOSINOPHILS PERCENT AUTO 1 % (0-6); Hematocrit 43.3 % (37.0-53.0); IMMATURE GRAN ABSOLUTE AUTO 0.06 K/mm3 (0.00-0.10); IMMATURE GRAN PERCENT AUTO 1 % (0-1); LYMPHOCYTES ABSOLUTE AUTO 1.34 K/mm3 (0.84-5.20); LYMPHOCYTES PERCENT AUTO 13 % (21-46); MONOCYTES ABSOLUTE AUTO 0.74 K/mm3 (0.16-1.47); MONOCYTES PERCENT AUTO 7 % (4-13); Mean Corpuscular HGB 32.3 pg (26.0-34.0); Mean Corpuscular HGB Conc 34.6 g/dL (31.5-36.5); Mean Corpuscular Volume 93 fL (80-100); NEUTROPHILS PERCENT AUTO 78 % (41-73); RDW Coefficient Variation 12.5 % (11.7-14.2); RDW Standard Deviation 42.8 fL (35.1-46.3); Red Blood Cell Count 4.65 M/mm3 (4.30-5.90); White Blood Cell Count 10.37 K/mm3 (4.00-11.30)
[2023-04-03 11:38] LABS: Albumin, Blood 3.6 g/dL (3.4-5.0); Albumin/Globulin Ratio 0.9 (0.8-1.8); Bun/Creatinine Ratio 18.2 (12.0-20.0); Calcium, Blood 9.5 mg/dL (8.5-10.1); Creatinine, Blood 1.32 mg/dL (0.60-1.20); Globulin, Blood 4.1 g/dL (2.2-4.0); Potassium, Blood 4.6 mmol/L (3.5-5.5); Total Protein, Blood 7.7 g/dL (6.4-8.2)
[2023-04-03 11:57] LABS: Platelet Count 126 K/mm3 (150-400)
== END | disposition home or self-care (01) ==
LOC: LAB 11:20 → LAB SHORT 11:20
PROVIDERS: Chiropractor
DX: R07.89 Other chest pain (principal)
CPT/HCPCS: 80053; 84484; 85025; 85379

== ENCOUNTER 2023-04-14 06:56 | Day surgery (SDC) | payer OTHER ==
[~2023-04-14] VITALS: Ht 182.9 cm; Wt 87.1 kg
--- NOTE | 2023-04-14 07:41 | NUR ---
04/14/23 0741 Pilar Perry TETRACAINE TO RIGHT EYE AT 0735 PLEDGET TO RIGHT EYE AT 0736 BY [facility].ELIZABETH
[2023-04-14 08:45] VITALS: BP 91/60
== END 2023-04-14 09:00 | disposition home or self-care (01) ==
LOC: ORSCSDS 06:56
PROVIDERS: Student in an Organized Health Care Education/Training Program
PROC: 08RJ3JZ Replacement of Right Lens with Synthetic Substitute, Percutaneous Approach (ICD-10-PCS; principal; 2023-04-14 08:30)
DX: E11.36 Type 2 diabetes mellitus with diabetic cataract (principal); H25.11 Age-related nuclear cataract, right eye; Z96.1 Presence of intraocular lens; Z87.891 Personal history of nicotine dependence; I10 Essential (primary) hypertension; Z79.4 Long term (current) use of insulin; Z79.84 Long term (current) use of oral hypoglycemic drugs; Z79.899 Other long term (current) drug therapy
CPT/HCPCS: 82947; J2250; J3010; J7040; V2632

== ENCOUNTER 2023-11-25 00:41 | Inpatient (IN) | payer OTHER ==
[~2023-11-25] VITALS: Ht 182.9 cm; Wt 91.4 kg
[~2023-11-25 00:41] MED LIST changes: -METO25ER; +METO25ER PO
[2023-11-25] MEDS ORDERED: Prednisone10 MG PO (00:59)
[2023-11-25 01:20] LABS: BASOPHILS ABSOLUTE AUTO 0.02 K/mm3 (0.00-0.23); BASOPHILS PERCENT AUTO 0 % (0-2); EOSINOPHILS ABSOLUTE AUTO 0.12 K/mm3 (0.00-0.68); EOSINOPHILS PERCENT AUTO 1 % (0-6); Hematocrit 42.9 % (37.0-53.0); Hemoglobin 14.7 g/dL (13.5-17.5); IMMATURE GRAN ABSOLUTE AUTO 0.05 K/mm3 (0.00-0.10); IMMATURE GRAN PERCENT AUTO 0 % (0-1); LYMPHOCYTES ABSOLUTE AUTO 2.09 K/mm3 (0.84-5.20); LYMPHOCYTES PERCENT AUTO 18 % (21-46); MONOCYTES ABSOLUTE AUTO 0.99 K/mm3 (0.16-1.47); MONOCYTES PERCENT AUTO 9 % (4-13); Mean Corpuscular HGB 31.7 pg (26.0-34.0); Mean Corpuscular HGB Conc 34.3 g/dL (31.5-36.5); Mean Corpuscular Volume 93 fL (80-100); Mean Platelet Volume 10.9 fL (9.1-12.4); NEUTROPHILS ABSOLUTE AUTO 8.09 K/mm3 (1.96-9.15); NEUTROPHILS PERCENT AUTO 71 % (41-73); Platelet Count 152 K/mm3 (150-400); RDW Coefficient Variation 12.2 % (11.7-14.2); RDW Standard Deviation 41.8 fL (35.1-46.3); Red Blood Cell Count 4.63 M/mm3 (4.30-5.90); White Blood Cell Count 11.36 K/mm3 (4.00-11.30)
[2023-11-25 01:35] LABS: Albumin, Blood 3.5 g/dL (3.4-5.0); Albumin/Globulin Ratio 0.9 (0.8-1.8); Bilirubin, Total 0.8 mg/dL (0.1-1.0); Bun/Creatinine Ratio 14.8 (12.0-20.0); Calcium, Blood 9.1 mg/dL (8.5-10.1); Creatinine, Blood 1.96 mg/dL (0.60-1.20); Globulin, Blood 4.1 g/dL (2.2-4.0); Potassium, Blood 4.4 mmol/L (3.5-5.5); Total Protein, Blood 7.6 g/dL (6.4-8.2)
[2023-11-25] MEDS ORDERED: NS 1,000 ML IV SCH ×4 (01:40→07:35)
[2023-11-25] MEDS ORDERED: Ketorolac Tromethamine 30mg Vial IV ONE (01:40)
[2023-11-25] MEDS ORDERED: Tamsulosin HCl 0.4 MG Cap PO ONE (03:05)
[2023-11-25] MEDS ORDERED: Morphine Sulfate 4 MG/1 ML Injection IV ONE (03:05)
[2023-11-25 03:48] LABS: Source, Urine Clean Catch
[2023-11-25 03:54] LABS: Appearance, Urine Clear (Clear); Bilirubin, Urine Neg (Neg); Blood, Urine Neg (Neg); Color, Urine Yellow (P-Yellow); Glucose Qualitative, Urine Neg (Neg); Ketones, Urine Neg (Neg); Leukocyte Esterase, Urine 1+ (Neg); Nitrite, Urine Neg (Neg); Protein, Urine 2+ (Neg); Specific Gravity, Urine 1.015 (1.003-1.022); Urobilinogen, Urine NORM (Normal)
[2023-11-25 04:07] LABS: Bacteria Few /hpf; Red Blood Cells, Urine 0-2 /hpf (0-2); Squamous Epithelial Cells Few /hpf (Few)
[2023-11-25] MEDS ORDERED: CefTRIAXone Sodium 1,000 MG in NS 50 ML IV ONE (05:10)
[2023-11-25] MEDS ORDERED: HYDROcodone 10-APAP 325 TAB PO PRN (05:45)
[2023-11-25] MEDS ORDERED: Naloxone HCl 0.4MG / ML 1ML Vial IV PRN (05:45)
[2023-11-25] MEDS ORDERED: FentaNYL Citrate 50 MCG/ML 2 ML Injection IV PRN (05:45)
[2023-11-25] MEDS ORDERED: Ondansetron HCl 2 MG / ML 2ML Vial IV PRN (05:45)
[2023-11-25] MEDS ORDERED: Acetaminophen 325 MG TABLET PO PRN (05:50)
[2023-11-25] MEDS ORDERED: Insulin Regular 100 UNIT/ML 10ML Vial SC SCH (07:30)
[2023-11-25 08:39] VITALS: BP 109/67
[2023-11-25] MEDS ORDERED: Tamsulosin HCl 0.4 MG Cap PO SCH (09:00)
[2023-11-25] MEDS ORDERED: Lactobacil 2-S.Thermo-Bifido 1 1 Cap PO SCH (09:00)
[2023-11-25] MEDS ORDERED: Docusate Sodium 100 MG Cap PO SCH (09:00)
[2023-11-25 10:00] LABS: Albumin, Blood 2.6 g/dL (3.4-5.0); Anion Gap 9 mmol/L (3-11); Blood Urea Nitrogen 28 mg/dL (8-24); Bun/Creatinine Ratio 14.3 (12.0-20.0); CO2, Blood 25 mmol/L (21-32); Calcium, Blood 7.8 mg/dL (8.5-10.1); Chloride, Blood 110 mmol/L (98-108); Creatinine, Blood 1.96 mg/dL (0.60-1.20); Glomerular Filtration Rate 36 (60-); Glucose, Blood 147 mg/dL (70-99); Phosphorus, Blood 3.9 mg/dL (2.5-4.9); Potassium, Blood 4.2 mmol/L (3.5-5.5); Sodium, Blood 140 mmol/L (136-145)
[2023-11-25 16:13] VITALS: BP 111/67
[2023-11-25 19:38] VITALS: BP 128/66
[2023-11-25 19:38] LABS: Bun/Creatinine Ratio 14.5 (12.0-20.0); Calcium, Blood 7.9 mg/dL (8.5-10.1); Creatinine, Blood 1.93 mg/dL (0.60-1.20); Potassium, Blood 4.4 mmol/L (3.5-5.5)
--- NOTE | 2023-11-25 19:53 | NUR ---
SHIFT SUMMARY- PT ADMITTED TO MEDICAL FLOOR WITH A URETERAL STONE. PT DID NOT HAVE ANY PAIN FOR MOST OF THE SHIFT, AT THE TIME OF BEDSIDE REPORT HE STATED HE HAS PAIN COMING BACK IN THE LEFT FLANK. COBRA TRANSFER IS PLANNED FOR INTERVENTIONAL UROLOGY. PT IN BED AT THE TIME OF BEDSIDE REPORT, NO S&S OF DISTRESS NOTED, PT STATES PAIN AND WAS MEDICATED BY NIGHT RN AFTER REPORT WAS COMPLETED. FAMILY ARRIVED AND IS AT THE BEDSIDE.
[2023-11-25] MEDS ORDERED: Nystatin 100,000 Unit/ML Susp 5 ML UDC SS SCH (21:00)
[2023-11-25] MEDS ORDERED: Metoprolol Succinate 25 MG TABCR PO SCH (21:00)
[2023-11-25] MEDS ORDERED: Heparin Sodium,Porcine 5,000 UNIT/0.5 ML SDV SC SCH (21:00)
[2023-11-26 04:56] VITALS: BP 122/70
[2023-11-26 05:50] LABS: BASOPHILS ABSOLUTE AUTO 0.01 K/mm3 (0.00-0.23); BASOPHILS PERCENT AUTO 0 % (0-2); EOSINOPHILS ABSOLUTE AUTO 0.23 K/mm3 (0.00-0.68); EOSINOPHILS PERCENT AUTO 4 % (0-6); Hemoglobin 11.2 g/dL (13.5-17.5); IMMATURE GRAN ABSOLUTE AUTO 0.03 K/mm3 (0.00-0.10); IMMATURE GRAN PERCENT AUTO 1 % (0-1); LYMPHOCYTES ABSOLUTE AUTO 1.25 K/mm3 (0.84-5.20); LYMPHOCYTES PERCENT AUTO 20 % (21-46); MONOCYTES ABSOLUTE AUTO 0.54 K/mm3 (0.16-1.47); MONOCYTES PERCENT AUTO 9 % (4-13); Mean Corpuscular HGB 31.7 pg (26.0-34.0); Mean Corpuscular HGB Conc 33.9 g/dL (31.5-36.5); Mean Corpuscular Volume 94 fL (80-100); Mean Platelet Volume 11.3 fL (9.1-12.4); NEUTROPHILS ABSOLUTE AUTO 4.06 K/mm3 (1.96-9.15); NEUTROPHILS PERCENT AUTO 66 % (41-73); Platelet Count 108 K/mm3 (150-400); RDW Standard Deviation 41.4 fL (35.1-46.3); Red Blood Cell Count 3.53 M/mm3 (4.30-5.90); White Blood Cell Count 6.12 K/mm3 (4.00-11.30)
--- NOTE | 2023-11-26 05:51 | NUR ---
END OF SHIFT SUMMARY PT A&OX4. C/O LEFT FLANK PAIN X1, MEDICATED PER EMAR WITH GOOD RELIEF. VOIDING CLEAR DARK YELLOW URINE, PT DENIES PAIN/BURNING. ALL URINE STRAINED, NO STONES FOUND. PT AMBULATING TO BR, SOB ON EXERTION WHICH PT STATES IS BASELINE AFTER LUNG CA DX AND TX. O2 SAT 89% ON RA WITH AMBULATION HOWEVER PT DECLINED OXYGEN, STATING HE HAD AN "ADDICTIVE PERSONALITY" AND "DONT WANT TO START THAT TOO". PT PLACED ON CONT PULSE OX AND EDUCATED ON IMPORTANCE OF MAINTAINING ADEQUATE SATURATION. O2 SAT DROPPED TO 83% WHILE SLEEPING. PT AGREED TO PLACE 2L OF O2 VIA NC WHILE SLEEPING, O2 SAT MAINTAINED >92.
[2023-11-26 07:25] VITALS: BP 137/72
[2023-11-26] MEDS ORDERED: CefTRIAXone Sodium 1,000 MG in NS 100 ML IV SCH (09:00)
[2023-11-26] MEDS ORDERED: Magnesium Citrate 300 ML BTL PO ONE (10:15)
[2023-11-26 17:02] LABS: Magnesium, Blood 1.6 mg/dL (1.6-2.4)
[2023-11-26 17:19] VITALS: BP 113/68
[2023-11-26 17:27] LABS: Albumin, Blood 2.6 g/dL (3.4-5.0); Albumin/Globulin Ratio 0.8 (0.8-1.8); Bilirubin, Total 0.7 mg/dL (0.1-1.0); Bun/Creatinine Ratio 12.8 (12.0-20.0); Calcium, Blood 7.8 mg/dL (8.5-10.1); Creatinine, Blood 1.87 mg/dL (0.60-1.20); Globulin, Blood 3.1 g/dL (2.2-4.0); Potassium, Blood 4.4 mmol/L (3.5-5.5); Total Protein, Blood 5.7 g/dL (6.4-8.2)
--- NOTE | 2023-11-26 18:05 | NUR ---
SHIFT SUMMARY PT POOR INTAKE AND C/O N/V THAT WAS MEDICATED X2. NO URETER STONE PASSED AT THIS TIME. PT MEDICATED FOR PAIN X1 AND REMAINED TACHYCARDIC, BUT ASYMPTOMATIC. NO OTHER ACUTE CHANGES THIS SHIFT. CALL LIGHT WITHIN REACH AND PT ABLE TO MAKE NEEDS KNOWN.
[2023-11-26 19:34] VITALS: BP 121/78
[2023-11-27 04:04] VITALS: BP 113/65
--- NOTE | 2023-11-27 05:55 | NUR ---
SHIFT SUMMARY PATIENT ALERT AND ORIENTED X4. INDEPENDENT TO THE RESTROOM. MEDICATED ONCE PER EMAR FOR PAIN. PATIENT REPORTED EXPERIENCING NAUSEA BUT DECLINED MEDICATION FOR IT. PATIENT ON 2 LITERS O2 VIA NASAL CANNULA WITH SPO2 >90%. PATIENT BECOMES DYSPNIC WITH ACTIVITY. VITAL SIGNS STABLE. STRAINING URINE, NO STONES NOTED. WILL CONTINUE TO MONITOR. CALL LIGHT WITHIN REACH.
[2023-11-27 06:25] LABS: Calcium, Blood 7.9 mg/dL (8.5-10.1); Creatinine, Blood 1.5 mg/dL (0.60-1.20)
[2023-11-27 07:24] VITALS: BP 116/63
[2023-11-27] MEDS ORDERED: CEFU500T30 PO (11:20)
[2023-11-27] MEDS ORDERED: HYDR1TAB94 PO (11:21)
[2023-11-27] MEDS ORDERED: VISBIOME 112.51 EACH PO (11:22)
[2023-11-27] MEDS ORDERED: NYSTATIN100000 U13 MT (11:23)
[2023-11-27] MEDS ORDERED: TAMS.4ER PO (11:24)
[2023-11-27] MEDS ORDERED: MIRALAX17 GM PO (11:24)
--- NOTE | 2023-11-27 12:36 | NUR ---
DISCHARGE NOTE PT DISCHARGED HOME AT APPROX 1230. PT AND PT'S DAUGHTER PROVIDED W/ VERBAL AND WRIITEN INSTRUCTIONS AND REPORTED UNDERSTANDING. PT A&OX4, VSS, AMB IND, REFUSED LUNCH, VOIDING, AND PAIN MANAGED PER EMAR. BELONGINGS WERE RETURNED AND HARD SCRIPT GIVEN. PT ESCOURTED OUT VIA W/C BY SRAVAN LIRA.
== END 2023-11-27 12:35 | disposition home or self-care (01) | DRG 683 ==
LOC: ER 00:41 → MEDS 00:42 → ENPENDDIS 11-27 10:44 → MEDS 11-27 12:35
PROVIDERS: Emergency Medicine; Internal Medicine; ADMIT Student in an Organized Health Care Education/Training Program
DX: N17.9 Acute kidney failure, unspecified (principal); B37.0 Candidal stomatitis; N20.1 Calculus of ureter; N13.30 Unspecified hydronephrosis; N18.30 Chronic kidney disease, stage 3 unspecified; D73.89 Other diseases of spleen; K59.00 Constipation, unspecified; N40.1 Benign prostatic hyperplasia with lower urinary tract symptoms; I12.9 Hypertensive chronic kidney disease with stage 1 through stage 4 chronic kidney disease, or unspecified chronic kidney disease; E11.22 Type 2 diabetes mellitus with diabetic chronic kidney disease; Z85.118 Personal history of other malignant neoplasm of bronchus and lung; Z92.21 Personal history of antineoplastic chemotherapy; Z92.3 Personal history of irradiation; Z87.442 Personal history of urinary calculi; Z86.19 Personal history of other infectious and parasitic diseases; Z87.01 Personal history of pneumonia (recurrent); Z98.49 Cataract extraction status, unspecified eye; Z98.890 Other specified postprocedural states; Z87.891 Personal history of nicotine dependence; Z88.0 Allergy status to penicillin; Z79.84 Long term (current) use of oral hypoglycemic drugs; Z79.4 Long term (current) use of insulin; Z79.811 Long term (current) use of aromatase inhibitors; Z79.52 Long term (current) use of systemic steroids; Z79.899 Other long term (current) drug therapy
CPT/HCPCS: 36415; 74177; 80048; 80053; 80069; 81001; 82947; 83605; 83690; 83735; 85025; 87086; 94761; 94762; 96361; 96365-59; 96375; 99285-25; A9270; G0378; J0696; J1644; J1815; J1885; J2270; J2405; J7030; Q9967

== ENCOUNTER 2025-02-11 02:49 | Emergency (ER) | payer OTHER ==
[~2025-02-11] VITALS: Ht 180.3 cm; Wt 94.8 kg
[~2025-02-11 02:49] MED LIST changes: +CEFU500T30 PO; +HYDR1TAB94 PO; +MIRALAX17 GM PO; +NYSTATIN100000 U13 MT; +Prednisone10 MG PO; +VISBIOME 112.51 EACH PO
[2025-02-11 03:23] LABS: BASOPHILS ABSOLUTE AUTO 0.04 K/mm3 (0.00-0.23); BASOPHILS PERCENT AUTO 0 % (0-2); EOSINOPHILS ABSOLUTE AUTO 0.07 K/mm3 (0.00-0.68); EOSINOPHILS PERCENT AUTO 1 % (0-6); Hematocrit 40.2 % (37.0-53.0); Hemoglobin 14.2 g/dL (13.5-17.5); IMMATURE GRAN ABSOLUTE AUTO 0.04 K/mm3 (0.00-0.10); IMMATURE GRAN PERCENT AUTO 0 % (0-1); LYMPHOCYTES ABSOLUTE AUTO 1.76 K/mm3 (0.84-5.20); LYMPHOCYTES PERCENT AUTO 15 % (21-46); MONOCYTES ABSOLUTE AUTO 1.06 K/mm3 (0.16-1.47); MONOCYTES PERCENT AUTO 9 % (4-13); Mean Corpuscular HGB 32.7 pg (26.0-34.0); Mean Corpuscular HGB Conc 35.3 g/dL (31.5-36.5); Mean Corpuscular Volume 93 fL (80-100); Mean Platelet Volume 11.2 fL (9.1-12.4); NEUTROPHILS ABSOLUTE AUTO 8.98 K/mm3 (1.96-9.15); NEUTROPHILS PERCENT AUTO 75 % (41-73); Platelet Count 121 K/mm3 (150-400); RDW Coefficient Variation 12.2 % (11.7-14.2); Red Blood Cell Count 4.34 M/mm3 (4.30-5.90); White Blood Cell Count 11.95 K/mm3 (4.00-11.30)
[2025-02-11 03:45] LABS: Albumin, Blood 3.3 g/dL (3.4-5.0); Albumin/Globulin Ratio 0.9 (0.8-1.8); Bilirubin, Total 0.4 mg/dL (0.1-1.0); Bun/Creatinine Ratio 18.9 (12.0-20.0); Calcium, Blood 8.5 mg/dL (8.5-10.1); Creatinine, Blood 2.06 mg/dL (0.60-1.20); Globulin, Blood 3.8 g/dL (2.2-4.0); Potassium, Blood 4.5 mmol/L (3.5-5.5); Total Protein, Blood 7.1 g/dL (6.4-8.2)
[2025-02-11] MEDS ORDERED: NS 1,000 ML IV SCH (03:55)
[2025-02-11 05:10] LABS: Source, Urine Clean Catch
[2025-02-11 05:14] LABS: Appearance, Urine Clear (Clear); Bilirubin, Urine Neg (Neg); Blood, Urine 1+ (Neg); Color, Urine Yellow (P-Yellow); Glucose Qualitative, Urine Neg (Neg); Ketones, Urine Neg (Neg); Leukocyte Esterase, Urine 2+ (Neg); Nitrite, Urine Neg (Neg); Protein, Urine 2+ (Neg); Urobilinogen, Urine NORM (Normal)
[2025-02-11 05:25] LABS: Amorphous Light (0-Heavy); Bacteria Mod /hpf; Hyaline Casts 0-2 /lpf (0-2); Red Blood Cells, Urine 0-2 /hpf (0-2); Squamous Epithelial Cells Many /hpf (Few)
[2025-02-11] MEDS ORDERED: CefTRIAXone Sodium 1,000 MG in NS 50 ML IV ONE (06:00)
[2025-02-11] MEDS ORDERED: CEPH500 PO (06:13)
[2025-02-11 07:28] VITALS: BP 119/67
== END 2025-02-11 07:27 | disposition home or self-care (01) ==
LOC: ER 02:49
PROVIDERS: Emergency Medicine
DX: N39.0 Urinary tract infection, site not specified (principal); R00.0 Tachycardia, unspecified; E86.0 Dehydration; Z59.89 Other problems related to housing and economic circumstances; Z88.0 Allergy status to penicillin; Z79.4 Long term (current) use of insulin; Z79.899 Other long term (current) drug therapy; E11.9 Type 2 diabetes mellitus without complications; I10 Essential (primary) hypertension; Z87.891 Personal history of nicotine dependence
CPT/HCPCS: 76770; 80053; 81001; 85025; 87086; 93005; 93010; 96374; 99284-25; J0696; J7030

== ENCOUNTER 2025-03-12 17:35 | Emergency (ER) | payer OTHER ==
[~2025-03-12] VITALS: Ht 182.9 cm; Wt 88.9 kg
[2025-03-12] MEDS ORDERED: Ondansetron HCl 2 MG / ML 2ML Vial IV ONE (17:55)
[2025-03-12] MEDS ORDERED: NS 1,000 ML IV SCH (17:55)
[2025-03-12 21:55] VITALS: BP 111/78
[2025-03-12] MEDS ORDERED: TAMS.4ER PO (22:05)
[2025-03-12] MEDS ORDERED: ONDA4ODT MM (22:05)
[2025-03-12] MEDS ORDERED: CEPH500 PO (22:05)
== END 2025-03-12 22:13 | disposition home or self-care (01) ==
LOC: ER 17:35
DX: N13.2 Hydronephrosis with renal and ureteral calculous obstruction (principal); E11.9 Type 2 diabetes mellitus without complications; I10 Essential (primary) hypertension; N39.0 Urinary tract infection, site not specified; Z88.0 Allergy status to penicillin; Z79.4 Long term (current) use of insulin; Z87.891 Personal history of nicotine dependence
CPT/HCPCS: 74176; 80053; 83605; 85025; 87086; 99283-25; A9270; J2405; J7030

== ENCOUNTER → 2025-03-12 | Outpatient (CLI) | payer OTHER ==
[~2025-03-12] MED LIST changes: +CEPH500 PO
[2025-03-12 16:27] LABS: BASOPHILS ABSOLUTE AUTO 0.02 K/mm3 (0.00-0.23); BASOPHILS PERCENT AUTO 0 % (0-2); EOSINOPHILS ABSOLUTE AUTO 0.04 K/mm3 (0.00-0.68); EOSINOPHILS PERCENT AUTO 1 % (0-6); Hematocrit 38.7 % (37.0-53.0); Hemoglobin 13.3 g/dL (13.5-17.5); IMMATURE GRAN ABSOLUTE AUTO 0.05 K/mm3 (0.00-0.10); IMMATURE GRAN PERCENT AUTO 1 % (0-1); LYMPHOCYTES ABSOLUTE AUTO 1.13 K/mm3 (0.84-5.20); LYMPHOCYTES PERCENT AUTO 16 % (21-46); MONOCYTES ABSOLUTE AUTO 0.33 K/mm3 (0.16-1.47); MONOCYTES PERCENT AUTO 5 % (4-13); Mean Corpuscular HGB Conc 34.4 g/dL (31.5-36.5); Mean Corpuscular Volume 93 fL (80-100); NEUTROPHILS ABSOLUTE AUTO 5.62 K/mm3 (1.96-9.15); NEUTROPHILS PERCENT AUTO 78 % (41-73); NRBC ABSOLUTE 0.00 K/mm3 (0.00-0.02); NRBC Auto 0.0 /100 WBC (0.0-0.2); Platelet Count 154 K/mm3 (150-400); RDW Coefficient Variation 12.6 % (11.7-14.2); RDW Standard Deviation 42.4 fL (35.1-46.3)
[2025-03-12 16:36] LABS: Alanine Aminotransfer (ALT/SGP 59.0 U/L (12-78); Albumin, Blood 3.4 g/dL (3.4-5.0); Albumin/Globulin Ratio 0.9 (0.8-1.8); Anion Gap 17.0 mmol/L (3-11); Aspartate Aminotrans (AST/SGOT 32.0 U/L (12-37); Bilirubin, Total 0.5 mg/dL (0.1-1.0); Blood Urea Nitrogen 47.0 mg/dL (8-24); CO2, Blood 20.0 mmol/L (21-32); Calcium, Blood 8.8 mg/dL (8.5-10.1); Chloride, Blood 103.0 mmol/L (98-108); Creatinine, Blood 2.1 mg/dL (0.60-1.20); Globulin, Blood 3.9 g/dL (2.2-4.0); Glucose, Blood 147.0 mg/dL (70-99); Potassium, Blood 5.7 mmol/L (3.5-5.5); Sodium, Blood 134.0 mmol/L (136-145); Total Protein, Blood 7.3 g/dL (6.4-8.2)
== END ==
LOC: LAB SHORT 16:23 → LAB 16:23
PROVIDERS: Physician Assistant
DX: N39.0 Urinary tract infection, site not specified (principal)
CPT/HCPCS: 80053; 85025; 87086

== ENCOUNTER 2025-06-20 16:02 | Emergency (ER) | payer OTHER ==
[~2025-06-20] VITALS: Ht 182.9 cm; Wt 88.9 kg
[2025-06-20 17:20] LABS: BASOPHILS ABSOLUTE AUTO 0.02 K/mm3 (0.00-0.23); BASOPHILS PERCENT AUTO 0 % (0-2); EOSINOPHILS ABSOLUTE AUTO 0.93 K/mm3 (0.00-0.68); EOSINOPHILS PERCENT AUTO 14 % (0-6); Hematocrit 35.4 % (37.0-53.0); Hemoglobin 11.8 g/dL (13.5-17.5); IMMATURE GRAN ABSOLUTE AUTO 0.02 K/mm3 (0.00-0.10); IMMATURE GRAN PERCENT AUTO 0 % (0-1); LYMPHOCYTES ABSOLUTE AUTO 2.04 K/mm3 (0.84-5.20); LYMPHOCYTES PERCENT AUTO 30 % (21-46); MONOCYTES ABSOLUTE AUTO 0.53 K/mm3 (0.16-1.47); MONOCYTES PERCENT AUTO 8 % (4-13); Mean Corpuscular HGB Conc 33.3 g/dL (31.5-36.5); Mean Corpuscular Volume 95 fL (80-100); NEUTROPHILS ABSOLUTE AUTO 3.23 K/mm3 (1.96-9.15); NEUTROPHILS PERCENT AUTO 48 % (41-73); NRBC ABSOLUTE 0.00 K/mm3 (0.00-0.02); NRBC Auto 0.0 /100 WBC (0.0-0.2); Platelet Count 158 K/mm3 (150-400); RDW Coefficient Variation 12.3 % (11.7-14.2); RDW Standard Deviation 42.7 fL (35.1-46.3)
[2025-06-20 18:07] LABS: Anion Gap 10.0 mmol/L (3-11); Blood Urea Nitrogen 56.0 mg/dL (8-24); CO2, Blood 18.0 mmol/L (21-32); Calcium, Blood 8.0 mg/dL (8.5-10.1); Chloride, Blood 115.0 mmol/L (98-108); Creatinine, Blood 2.36 mg/dL (0.60-1.20); Glucose, Blood 140.0 mg/dL (70-99); Potassium, Blood 5.1 mmol/L (3.5-5.5); Sodium, Blood 138.0 mmol/L (136-145)
[2025-06-20 18:27] LABS: Source, Urine Clean Catch
[2025-06-20 19:10] LABS: Bilirubin, Urine Neg (Neg); Color, Urine Yellow (P-Yellow); Glucose Qualitative, Urine Neg (Neg); Ketones, Urine Neg (Neg); Leukocyte Esterase, Urine 1+ (Neg); Protein, Urine 1+ (Neg); Specific Gravity, Urine 1.015 (1.003-1.022); Urobilinogen, Urine NORM (Normal)
[2025-06-20 19:21] LABS: Amorphous Casts 0-2 /lpf (0); Red Blood Cells, Urine 0-2 /hpf (0-2); White Blood Cells, Urine 0-2 /hpf (0-5)
[2025-06-20 20:00] VITALS: BP 105/61
== END 2025-06-20 20:07 | disposition home or self-care (01) ==
LOC: ER 16:02
PROVIDERS: Emergency Medicine
DX: N17.9 Acute kidney failure, unspecified (principal); E86.0 Dehydration; E11.9 Type 2 diabetes mellitus without complications; I10 Essential (primary) hypertension; Z87.891 Personal history of nicotine dependence; Z85.118 Personal history of other malignant neoplasm of bronchus and lung; Z92.21 Personal history of antineoplastic chemotherapy; Z92.3 Personal history of irradiation; Z88.0 Allergy status to penicillin; Z79.4 Long term (current) use of insulin; Z79.899 Other long term (current) drug therapy
CPT/HCPCS: 51798; 71046; 80048; 80053; 81001; 83880; 85025; 87086; 93005; 93010; 99284-25; J7120

== ENCOUNTER → 2025-06-20 | Outpatient (CLI) | payer OTHER ==
[2025-06-20 13:04] LABS: BASOPHILS ABSOLUTE AUTO 0.02 K/mm3 (0.00-0.23); BASOPHILS PERCENT AUTO 0 % (0-2); EOSINOPHILS ABSOLUTE AUTO 1.09 K/mm3 (0.00-0.68); EOSINOPHILS PERCENT AUTO 13 % (0-6); Hematocrit 39.9 % (37.0-53.0); Hemoglobin 13.4 g/dL (13.5-17.5); IMMATURE GRAN ABSOLUTE AUTO 0.03 K/mm3 (0.00-0.10); IMMATURE GRAN PERCENT AUTO 0 % (0-1); LYMPHOCYTES ABSOLUTE AUTO 2.41 K/mm3 (0.84-5.20); LYMPHOCYTES PERCENT AUTO 29 % (21-46); MONOCYTES ABSOLUTE AUTO 0.66 K/mm3 (0.16-1.47); MONOCYTES PERCENT AUTO 8 % (4-13); Mean Corpuscular HGB Conc 33.6 g/dL (31.5-36.5); Mean Corpuscular Volume 94 fL (80-100); NEUTROPHILS ABSOLUTE AUTO 4.04 K/mm3 (1.96-9.15); NEUTROPHILS PERCENT AUTO 49 % (41-73); NRBC ABSOLUTE 0.00 K/mm3 (0.00-0.02); NRBC Auto 0.0 /100 WBC (0.0-0.2); Platelet Count 191 K/mm3 (150-400); RDW Coefficient Variation 12.5 % (11.7-14.2); RDW Standard Deviation 43.3 fL (35.1-46.3)
[2025-06-20 13:14] LABS: Alanine Aminotransfer (ALT/SGP 51.0 U/L (12-78); Albumin, Blood 3.4 g/dL (3.4-5.0); Albumin/Globulin Ratio 0.9 (0.8-1.8); Anion Gap 16.0 mmol/L (3-11); Aspartate Aminotrans (AST/SGOT 30.0 U/L (12-37); Bilirubin, Total 0.3 mg/dL (0.1-1.0); Blood Urea Nitrogen 62.0 mg/dL (8-24); CO2, Blood 20.0 mmol/L (21-32); Calcium, Blood 9.1 mg/dL (8.5-10.1); Chloride, Blood 109.0 mmol/L (98-108); Creatinine, Blood 2.66 mg/dL (0.60-1.20); Globulin, Blood 3.9 g/dL (2.2-4.0); Glucose, Blood 177.0 mg/dL (70-99); Potassium, Blood 5.5 mmol/L (3.5-5.5); Sodium, Blood 139.0 mmol/L (136-145); Total Protein, Blood 7.3 g/dL (6.4-8.2)
== END ==
LOC: LAB SHORT 12:58 → LAB 12:58
PROVIDERS: Physician Assistant
DX: I95.9 Hypotension, unspecified (principal)
CPT/HCPCS: 80053; 85025

== ENCOUNTER 2025-07-13 15:57 | Inpatient (IN) | payer OTHER ==
[2025-07-13] VITALS (8 sets, daily range): BP systolic 76–114; BP diastolic 49–93
[~2025-07-13] VITALS: Ht 180.3 cm; Wt 86.5 kg
[~2025-07-13 15:57] MED LIST changes: -LISI5; +LISINOPRIL2.5 MG PO; -METO25ER PO; +METO50 PO
[2025-07-13] MEDS ORDERED: NS 1,000 ML IV ONE ×3 (16:48→23:00)
[2025-07-13] MEDS ORDERED: NS 1,000 ML IV SCH ×3 (17:15→19:40)
[2025-07-13 17:18] LABS: BASOPHILS ABSOLUTE AUTO 0.02 K/mm3 (0.00-0.23); BASOPHILS PERCENT AUTO 0 % (0-2); EOSINOPHILS ABSOLUTE AUTO 0.30 K/mm3 (0.00-0.68); EOSINOPHILS PERCENT AUTO 4 % (0-6); Hematocrit 38.0 % (37.0-53.0); Hemoglobin 12.6 g/dL (13.5-17.5); IMMATURE GRAN ABSOLUTE AUTO 0.03 K/mm3 (0.00-0.10); IMMATURE GRAN PERCENT AUTO 0 % (0-1); LYMPHOCYTES ABSOLUTE AUTO 1.34 K/mm3 (0.84-5.20); LYMPHOCYTES PERCENT AUTO 17 % (21-46); MONOCYTES ABSOLUTE AUTO 0.55 K/mm3 (0.16-1.47); MONOCYTES PERCENT AUTO 7 % (4-13); Mean Corpuscular HGB Conc 33.2 g/dL (31.5-36.5); Mean Corpuscular Volume 93 fL (80-100); NEUTROPHILS ABSOLUTE AUTO 5.52 K/mm3 (1.96-9.15); NEUTROPHILS PERCENT AUTO 71 % (41-73); NRBC ABSOLUTE 0.00 K/mm3 (0.00-0.02); NRBC Auto 0.0 /100 WBC (0.0-0.2); Platelet Count 135 K/mm3 (150-400); RDW Coefficient Variation 12.2 % (11.7-14.2); RDW Standard Deviation 42.1 fL (35.1-46.3)
[2025-07-13 17:42] LABS: Alanine Aminotransfer (ALT/SGP 56.0 U/L (12-78); Albumin, Blood 3.4 g/dL (3.4-5.0); Albumin/Globulin Ratio 1.0 (0.8-1.8); Anion Gap 14.0 mmol/L (3-11); Aspartate Aminotrans (AST/SGOT 37.0 U/L (12-37); Bilirubin, Total 0.4 mg/dL (0.1-1.0); Blood Urea Nitrogen 65.0 mg/dL (8-24); CO2, Blood 16.0 mmol/L (21-32); Calcium, Blood 8.2 mg/dL (8.5-10.1); Chloride, Blood 102.0 mmol/L (98-108); Creatinine, Blood 3.15 mg/dL (0.60-1.20); Globulin, Blood 3.5 g/dL (2.2-4.0); Glucose, Blood 170.0 mg/dL (70-99); Potassium, Blood 6.8 mmol/L (3.5-5.5); Sodium, Blood 125.0 mmol/L (136-145); Total Protein, Blood 6.9 g/dL (6.4-8.2)
[2025-07-13] MEDS ORDERED: Calcium Gluconate 10% 100 MG/ML INJ IV ONE (17:50)
[2025-07-13] MEDS ORDERED: Albuterol 2.5 MG/3 ML VIAL INH SCH (17:50)
[2025-07-13] MEDS ORDERED: Insulin Regular 100 Unit/ML 1ML Dose IV ONE (17:50)
[2025-07-13] MEDS ORDERED: CALCIUM GLUC IN NACL, ISO-OSM 50 ML IV ONE (17:55)
[2025-07-13 18:08] LABS: Influenza A, PCR NEGATIVE (NEGATIVE); Influenza B, PCR NEGATIVE (NEGATIVE); Resp Syncytial Virus, PCR NEGATIVE (NEGATIVE); SARS-Cov-2 (COVID-19) PCR, MMC NEGATIVE (NEGATIVE)
[2025-07-13] MEDS ORDERED: FLU VACC TS2025(65UP)/MF59C/PF 45 MCG/0.5 ML SYRINGE IM SCH (18:45)
[2025-07-13] MEDS ORDERED: Diphenoxylat/Atrop 2.5 / 0.025MG 1 Tab PO PRN (19:25)
[2025-07-13 19:48] LABS: Calcium, Ionized (POC) 1.18 mmol/L (1.10-1.46); Chloride (POC) 102 mmol/L (98-108); Creatinine (POC) 3.4 mg/dL (0.8-1.3); Glucose (ISTAT POC) 216 mg/dL (70-99); Hematocrit (POC) 31.0 % (41.0-53.0); Hemoglobin (POC) 10.5 g/dL (13.5-17.5); Potassium (POC) 4.4 mmol/L (3.5-5.5); Sodium (POC) 131 mmol/L (135-148); Total CO2 (POC) 14 mmol/L (21-32)
[2025-07-13] MEDS ORDERED: Insulin Human Lispro 100 Units/ML 3ML Syringe SC SCH (21:00)
[2025-07-13] MEDS ORDERED: BASAGLAR K100 UNIT/3 SC (21:35)
[2025-07-13] MEDS ORDERED: METFORMIN HCL1000 MG PO (21:36)
[2025-07-13 22:48] LABS: Source, Urine Straight Cath
[2025-07-13 22:53] LABS: Bilirubin, Urine Neg (Neg); Glucose Qualitative, Urine Neg (Neg); Ketones, Urine 1+ (Neg); Leukocyte Esterase, Urine Neg (Neg); Protein, Urine 1+ (Neg); Specific Gravity, Urine 1.015 (1.003-1.022); Urobilinogen, Urine NORM (Normal)
[2025-07-13 22:55] LABS: Color, Urine Yellow (P-Yellow)
--- NOTE | 2025-07-13 23:08 | NUR ---
TRANSFER NOTE PT A&O X4. WEAKNESS NOTED WITH AMBULATION. DENIED DIZZINESS. SBP 100'S AT TIME OF ADMISSION. SINCE ADMISSION SBP 70-80'S WITH MAP 59-61. MD NOTIFIED. 1L NS BOLUS ORDERED AND INFUSING AT THIS TIME. PT ATTEMPTED TO URINATE BUT WAS UNABLE. BLADDER SCAN SHOWING >600MLS. STRAIGHT CATH PERFORMED WITH 450MLS OUT. UA SENT PER MD ORDER. SR ON MONITOR. ON RA WITH SPO2 >92%. DENIES CHEST PAIN/PRESSURE. BED IN LOWEST POSITION AND CALL LIGHT WITHIN REACH.
[2025-07-14] VITALS (94 sets, daily range): BP systolic 79–120; BP diastolic 44–85
--- NOTE | 2025-07-14 00:19 | NUR ---
MD COMMUNICATION MD CURTIS TO BEDSIDE. AFTER 1L NS BOLUS INFUSED MAP REMAINS 62, WITH SBP 80'S. MD CURTIS WITH ORDER FOR 5MG PO MIDODRINE Q8. ORDER PLACED. WITH VERBAL ORDER THAT IF BP DOES NOT IMPROVE AFTER MEDICATION THAT WE WILL TRANSFER TO ICU FOR LEVOPHED.
[2025-07-14] MEDS ORDERED: Magnesium Sulf 2 GM/Water 50ML 50 ML IV ONE (01:30)
--- NOTE | 2025-07-14 02:29 | NUR ---
PATIENT UPDATE MD CURTIS CALLED REGARDING CONTINUED HYPOTENSION. MAP 58-62. PT DENIES CHEST PAIN/PRESSURE AND SOB. SOB WITH EXERTION NOTED WITH URINAL USE ONLY. MD WITH ORDER TO TRANSFER TO ICU FOR LEVOPHED. NO OTHER ACUTE CHANGES. SEE PREVIOUS NOTES AND ASSESSMENT. PT ASKING THAT WE DO NOT CALL DAUGHTER AT THIS TIME. REPORT GIVEN TO TRACY HUERTA IN ICU.
[2025-07-14 04:50] LABS: BASOPHILS ABSOLUTE AUTO 0.01 K/mm3 (0.00-0.23); BASOPHILS PERCENT AUTO 0 % (0-2); EOSINOPHILS ABSOLUTE AUTO 0.42 K/mm3 (0.00-0.68); EOSINOPHILS PERCENT AUTO 7 % (0-6); Hematocrit 28.9 % (37.0-53.0); Hemoglobin 9.9 g/dL (13.5-17.5); IMMATURE GRAN ABSOLUTE AUTO 0.02 K/mm3 (0.00-0.10); IMMATURE GRAN PERCENT AUTO 0 % (0-1); LYMPHOCYTES ABSOLUTE AUTO 1.33 K/mm3 (0.84-5.20); LYMPHOCYTES PERCENT AUTO 21 % (21-46); MONOCYTES ABSOLUTE AUTO 0.47 K/mm3 (0.16-1.47); MONOCYTES PERCENT AUTO 8 % (4-13); Mean Corpuscular HGB Conc 34.3 g/dL (31.5-36.5); Mean Corpuscular Volume 93 fL (80-100); NEUTROPHILS ABSOLUTE AUTO 4.01 K/mm3 (1.96-9.15); NEUTROPHILS PERCENT AUTO 64 % (41-73); NRBC ABSOLUTE 0.00 K/mm3 (0.00-0.02); NRBC Auto 0.0 /100 WBC (0.0-0.2); Platelet Count 104 K/mm3 (150-400); RDW Coefficient Variation 12.1 % (11.7-14.2); RDW Standard Deviation 40.6 fL (35.1-46.3)
[2025-07-14 05:08] LABS: Magnesium, Blood 1.9 mg/dL (1.6-2.4)
--- NOTE | 2025-07-14 05:34 | NUR ---
SHIFT KINGSLEY PT ARRIVED FROM PCU SHORTLY BEFORE 3AM THIS MORNING. HE WAS TRANSFERRED TO ICU BECAUSE OF HYPOTENSION AND THE NEED FOR PRESSORS. PT IS ALERT AND ORIENTED X4, HOWEVER HIS CONVERSATION IS CONFUSED AT TIMES. HIS DAUGHTER STATES THAT IS NORMAL FOR HIM. LEVOPHED WAS STARTED AND IS NOW AT 3MCG TO MAINTAIN A MAP >65. HE HAS BEEN SR ON THE APPLE SORTER. AFEBRILE. HE VOIDED IN THE URINAL. OXYGEN SAT 92% ON ROOM AIR. PT HAS HAD NO ACUTE DISTRESS SINCE ARRIVING TO THE ICU. HE WAS INSISTANT THAT WE DID NOT CALL AND UPDATE HIS FAMILY OF HIS TRANSFER HE DID NOT WANT THEM TO WORRY.
[2025-07-14 06:02] LABS: Anion Gap 12.0 mmol/L (3-11); Blood Urea Nitrogen 60.0 mg/dL (8-24); CO2, Blood 17.0 mmol/L (21-32); Calcium, Blood 7.7 mg/dL (8.5-10.1); Chloride, Blood 110.0 mmol/L (98-108); Creatinine, Blood 2.6 mg/dL (0.60-1.20); Glucose, Blood 83.0 mg/dL (70-99); Potassium, Blood 4.4 mmol/L (3.5-5.5); Sodium, Blood 135.0 mmol/L (136-145)
--- NOTE | 2025-07-14 07:20 | NUR ---
ASSUMPTION OF CARE: PATIENT RESTING IN BED. PATIENT DROWSY, EASILY AWOKEN AND ANSWERING QUESTIONS APPROPRIATELY. PATIENT CONTINUES ON LEVOPHED AT 4 MCG/MIN. NS INFUSING PER ORDERS. MAPS CURRENTLY 65 OR GREATER. PATIENT DENIES PAIN AND DISCOMFORT AT THIS TIME. PATIENT STABLE ON ROOM AIR WITH SPO2 AT 94%. DENIES SHORTNESS OF BREATH OR DIFFICULTY BREATHING. PER NOC RN, PATIENT VOIDING THIS MORNING. ABOUR 20ML CURRENTLY IN THE URINAL. URINE IS CLEAR, LIGHT YELLOW WITH NO FOUL ODOR NOTED. HIDE EXAMINER AT BEDSIDE FOR RENAL ULTRASOUND.
[2025-07-14] MEDS ORDERED: NS 1,000 ML IV SCH (14:05)
--- NOTE | 2025-07-14 18:39 | NUR ---
SHIFT SUMMARY: NEURO: PATIENT ALERT AND ORIENTED 3-4 THROUGHOUT THE SHIFT. PATIENT REPORTED FATIGUE RELATED TO LACK OF SLEEP LAST NIGHT. PATIENT FALLS ASLEEP QUICKLY WITHOUT INTERACTION. PATIENT ABLE TO DISCUSS MOST ASPECTS OF HIS CARE, BUT DOES APPRECIATE REMINDERS. PATIENT DENIED PAIN THROUGHOUT THE SHIFT. RESPIRATORY: PATIENT STABLE ON ROOM AIR WHEN AWAKE WITH SPO2 >94%. PATIENT REQUIRED 2L VIA NC WITH SLEEP TO MAINTAIN SPO2 >88%. PATIENT REPORTS THAT HIS BREATHING FEELS TO BE AT BASELINE. CARDIAC: PATIENT CONTINUED TO REQUIRE LEVOPHED GTT TO MAINTAIN MAPS >65. UNSUCCESSFULLY ATTEMPTED TO WEAN PATIENT OFF OF LEVOPHED TODAY. NEEDED TO GO BACK TO 4 MCG/MIN TO MAINTAIN MAPS >65. PATIENT DENIED CHEST PAIN OR DISCOMFORT. GI/: PATIENT DENIED NAUSEA THROUGHOUT THE SHIFT. PATIENT TOLERATED PO INTAKE WITHOUT GASTIRIC UPSET. PATIENT ADVANCED TO FULL LIQUID. NO BOWEL MOVEMENT TODAY. PATIENT CONTINUED TO RETAIN URINE. CHICAS PLACED TODAY. URINE IS CLEAR, LIGHT YELLOW. DR. MORGAN AT BEDSIDE. RENAL US COMPLETED IN THE MORNING. PATIENT DENIES FLANK PAIN. PSYCHSOCIAL: PATIENT VISITED BY 2 DAUGHTERS TODAY. PATIENT REPORTS THAT HIS HAS SCHIZOPHRENIA AND DEMENTIA AND THAT HIS DAUGHTERS SHOULD BE WHO WE CONTACT WITH UPDATES. PATIENT CALM AND COOPERATIVE THROUGHOUT THE SHIFT.
--- NOTE | 2025-07-14 21:47 | NUR ---
ASSUMPTION OF CARE ASSUMED CARE OF PT APPROX 1900, REMAINS A/O, RESTING IN BED. ABLE TO ANSWER QUESTIONS APPROPRIATELY AND USE CALL LIGHT NEEDED. SINUS RHYTHM WITH OCCASSIONAL PVC'S ON MONITOR, RATE IN THE 80S-90S, BP REMAINS STABLE ON LEVOPHED WITH MAP >65 AND SYSTOLIC IN LOW 100S. DENIES SOB, SATS >95% ON RA WHILE AWAKE, DIP TO THE MID 80S WHILE SLEEPING, SUPPLEMENTED WITH 2L NC AND PT IS MAINTAINING >95%. CHICAS IN PLACE AND DRAINING LARGE VOLUME OF DILUTE URINE TO GRAVITY. DENIES UNMET NEEDS AT THIS TIME, CALL LIGHT WITHIN REACH.
[2025-07-15] VITALS (57 sets, daily range): BP systolic 80–126; BP diastolic 39–85
[2025-07-15 04:27] LABS: BASOPHILS ABSOLUTE AUTO 0.01 K/mm3 (0.00-0.23); BASOPHILS PERCENT AUTO 0 % (0-2); EOSINOPHILS ABSOLUTE AUTO 0.38 K/mm3 (0.00-0.68); EOSINOPHILS PERCENT AUTO 6 % (0-6); Hematocrit 31.2 % (37.0-53.0); Hemoglobin 10.5 g/dL (13.5-17.5); IMMATURE GRAN ABSOLUTE AUTO 0.02 K/mm3 (0.00-0.10); IMMATURE GRAN PERCENT AUTO 0 % (0-1); LYMPHOCYTES ABSOLUTE AUTO 1.34 K/mm3 (0.84-5.20); LYMPHOCYTES PERCENT AUTO 22 % (21-46); MONOCYTES ABSOLUTE AUTO 0.51 K/mm3 (0.16-1.47); MONOCYTES PERCENT AUTO 8 % (4-13); Mean Corpuscular HGB Conc 33.7 g/dL (31.5-36.5); Mean Corpuscular Volume 92 fL (80-100); NEUTROPHILS ABSOLUTE AUTO 3.98 K/mm3 (1.96-9.15); NEUTROPHILS PERCENT AUTO 64 % (41-73); NRBC ABSOLUTE 0.00 K/mm3 (0.00-0.02); NRBC Auto 0.0 /100 WBC (0.0-0.2); Platelet Count 123 K/mm3 (150-400); RDW Coefficient Variation 12.4 % (11.7-14.2); RDW Standard Deviation 42.0 fL (35.1-46.3)
[2025-07-15 04:42] LABS: Total Iron Binding Capacity 178.0 ug/dL (250-450)
[2025-07-15 04:46] LABS: Anion Gap 8.0 mmol/L (3-11); Blood Urea Nitrogen 42.0 mg/dL (8-24); CO2, Blood 20.0 mmol/L (21-32); Calcium, Blood 8.2 mg/dL (8.5-10.1); Chloride, Blood 121.0 mmol/L (98-108); Creatinine, Blood 2.27 mg/dL (0.60-1.20); Glucose, Blood 115.0 mg/dL (70-99); Potassium, Blood 4.1 mmol/L (3.5-5.5)
[2025-07-15 04:51] LABS: Sodium, Blood 145.0 mmol/L (136-145)
--- NOTE | 2025-07-15 05:36 | NUR ---
SHIFT SUMMARY PT REMAINS A/O, ABLE TO ANSWER QUESTIONS AND USE CALL LIGHT APPROPRIATELY. SINUS TACH ON MONITOR WITH RATE OF 90-100, BP IS STABLE WITH MAP OF 75, LEVO ON SB. SATS >95% ON 2L NC WHILE SLEEPING, ABLE TO MAINTAIN SATS ON RA WHILE AWAKE. DENIES N/V, NO BM THIS SHIFT AND REPORTS NO ABD PAIN. CHICAS IN PLACE AND DRAINING TO GRAVITY, STILL PRODUCING LARGE VOLUMES OF PALE YELLOW URINE. PT DENIES UNMET NEEDS AT THIS TIME, CALL LIGHT WITHIN REACH.
--- NOTE | 2025-07-15 07:08 | NUR ---
ASSUMPTION OF CARE: PATIENT RESTING QUIETLY IN BED. NO SIGNS/SYMPTOMS OF PAIN AT THIS TIME. PATIENT CONTINUES TO NEED 2L VIA NC WHEN SLEEPING TO MAINTAIN SPO2 >88%. CURRENT SPO2 AT 95%. LEVOPHED ON STANDBY FOR ABOUT 1.5 HOURS PER NOC RNS. CURRENT MAPS>65. CHICAS IN PLACE AND DRAINING CLEAR, LIGHT YELLOW URINE.
[2025-07-15] MEDS ORDERED: Ondansetron HCl 2 MG / ML 2ML Vial IV PRN (13:45)
--- NOTE | 2025-07-15 18:46 | NUR ---
SHIFT SUMMARY: NEURO: PATIENT'S THOUGHTS AND INTERACTIONS MORE CLEAR THAN YESTERDAY. PATIENT ORIENTED TO SITUATION, DATE/TIME, PLACE, AND SELF. ABLE TO EASILY MAKE NEEDS KNOWN. PATIENT UP TO SHOWER CHAIR AND INTO SHOWER THIS MORNING. PATIENT WEAK WITH TRANSFERS AND FATIGUED AFTER ACTIVITY. PATIENT UP TO CHAIR FOR A COUPLE OF HOURS TODAY. PATIENT CONTINUED TO DENY PAIN. RESPIRATORY: PATIENT DESATURATES INTO THE MID 80S AT TIMES WITH SLEEP. REQUIRED 2L VIA NC TO MAINTAIN SPO2 >90% WITH SLEEP. STABLE ON ROOM AIR WITH SPO2 >92%. PATIENT HAS SHORTNESS OF BREATH WITH ACTIVITY. PATIENT REPORTS THAT THIS IS BASELINE FOR HIM. CARDIAC: PATIENT REMAINED OFF OF LEVOPHED THROUGHOUT THE SHIFT. PATIENT SINUS TACH FOR MOST OF THE SHIFT WITH HR IN THE 100S. MAPS >65. PATIENT DENIES CHEST PAIN OR DISCOMFORT. GI/: CHICAS IN PLACE AND DRAINING FREELY. CLEAR, LIGHT YELLOW URINE OUTPUT. PATIENT HAD ONE LIQUID BOWEL MOVEMENT TODAY. AT DINNER, PATIENT HAD AN EPISODE OF NAUSEA. PATIENT REPORTED THAT IT WAS RELATED TO THE FOOD. MEDICATED FOR NAUSEA AND ASSISTED WITH CALLING IN FOOD REQUESTS FOR TOMORROW. CONTINUES TO TOLERATE LIQUIDS AND FRUIT WITHOUT NAUSEA. PSYCHSOCIAL: PATIENT CALM AND COOPERATIVE. FAMILY IS SUPPORTIVE AND ENCOURAGING OF THE PATIENT.
[2025-07-16] VITALS (7 sets, daily range): BP systolic 92–108; BP diastolic 53–84
[2025-07-16 04:07] LABS: Albumin, Blood 2.5 g/dL (3.4-5.0); Anion Gap 8 mmol/L (3-11); Blood Urea Nitrogen 32 mg/dL (8-24); CO2, Blood 21 mmol/L (21-32); Calcium, Blood 7.9 mg/dL (8.5-10.1); Chloride, Blood 120 mmol/L (98-108); Creatinine, Blood 1.97 mg/dL (0.60-1.20); Glucose, Blood 120 mg/dL (70-99); Phosphorus, Blood 2.7 mg/dL (2.5-4.9); Potassium, Blood 4.1 mmol/L (3.5-5.5); Sodium, Blood 145 mmol/L (136-145)
--- NOTE | 2025-07-16 04:31 | NUR ---
ASSUMED CARE OF PT AT 1900. PT AXOX4 AND ABLE TO USE CALL LIGHT APPROPRIATELY. PT ON 2L NC TO MAINTAIN O2>92%. DYSPNEA NOTED WITH EXERTION. BP REMAINED IN THE LOW 100S SYS WITH MAP >65. ALL OTHER VSS. CHICAS IN PLACE AND DRAINING TO GRAVITY. 1/2NS RUNNING CONTINUOUSLY AT 125ML/HR. PT GOT UP TO THE CHAIR FOR A FEW HOURS AND TOLERATED WELL. PT PCU STATUS. BED IN LOWEST POSITION AND CALL LIGHT WITHIN REACH.
--- NOTE | 2025-07-16 12:50 | NUR ---
Report given to ANIMAL SITTER Lynne. Patient tranfered to U 19 via bed, patient's belongings with him, clothes, tablet, phone and glasses.
--- NOTE | 2025-07-16 12:52 | NUR ---
CARE NOTE PT ARRIVED TO PCU AT APPROX. 1239, VSS. PT DENIES NAUSEA AT THIS TIME. NS INFUSING PER EMAR ORDERS AT 125ML/HR. CALL LIGHT W/IN REACH.
--- NOTE | 2025-07-16 14:27 | NUR ---
TRANSFER TO PCU REPORT RECIEVED FROM DREA HUMAN GEOGRAPHY INSTRUCTOR AT 1220. PT ARRIVED TO UNIT AND WAS SETTLED AT ABOUT 1245 BY BREAK NURSE, THIS RN WAS OFF UNIT AT THE TIME. THIS RN RETURNED TO THE UNIT AND ASSESSED PT AT ABOUT 1300. PT A&O X4, ABLE TO EXPRESS NEEDS, TRANSFERS WITH 1 ASSIST FOR WEAKNESS. SATTING > 93% ON RA, DENIES SOB. ST 100s, BP SOFT, MAP > 65. MILD EDEMA NOTED THROUGHOUT. PT DENIES NAUSEA OR ABD PAIN AT THIS TIME. CHICAS IN PLACE, DRAINING TO GRAVITY. IV FLUIDS INFUSING AT 125 mL/hr. SEE NOTES FOR UPDATES.
--- NOTE | 2025-07-16 17:54 | NUR ---
CALL TO / AFTAB POWERGLIDE PT C/O BEING PAINFUL TO TOUCH AT LEFT UPPER ARM SURROUNDING SITE OF POWERGLIDE DOWN TO ELBOW. INCREASED WARMTH AND SLIGHT PINK DISCOLORATION NOTED AT SITE. DR. CALABRESE CALLED AND NOTIFIED ABOUT SITUATION, ULTRASOUND ORDERED FOR AFFECTED EXTREMITY, POWERGLIDE REMOVED.
[2025-07-17 03:46] VITALS: BP 94/63
[2025-07-17 04:49] LABS: Albumin, Blood 2.5 g/dL (3.4-5.0); Anion Gap 9 mmol/L (3-11); Blood Urea Nitrogen 26 mg/dL (8-24); CO2, Blood 22 mmol/L (21-32); Calcium, Blood 7.9 mg/dL (8.5-10.1); Chloride, Blood 116 mmol/L (98-108); Creatinine, Blood 1.94 mg/dL (0.60-1.20); Glucose, Blood 137 mg/dL (70-99); Phosphorus, Blood 2.1 mg/dL (2.5-4.9); Potassium, Blood 4.0 mmol/L (3.5-5.5); Sodium, Blood 143 mmol/L (136-145)
--- NOTE | 2025-07-17 06:04 | NUR ---
PT A&OX4, PT SLEPT T/O MOST OF SHIFT. PT TOOK A SHOWER DURING THIS SHIFT. NO ACUTE CHANGES SNOTED THIS SHIFT.
[2025-07-17 07:52] VITALS: BP 119/54
[2025-07-17] MEDS ORDERED: NS 1,000 ML IV SCH (11:30)
[2025-07-17 11:47] VITALS: BP 104/58
[2025-07-17] MEDS ORDERED: Insulin Glargine 100 Unit/ML 3 ML SYR SC SCH (12:00)
[2025-07-17 15:16] VITALS: BP 104/57
[2025-07-17 18:30] LABS: ALPHA 1 GLOBULIN 0.29 g/dL (0.19-0.46); ALPHA 2 GLOBULIN 0.67 g/dL (0.48-1.05); BETA GLOBULIN 0.53 g/dL (0.48-1.10); GAMMA 0.93 g/dL (0.62-1.51); IMMUNOFIXATION REFLEX Not Done
--- NOTE | 2025-07-17 19:14 | NUR ---
SHIFT SUMMARY PATIENT AOX4 ALL SHIFT. SBP 100'S-110'S, MAP >65. PROVIDER AWARE. MEDICATTED PER EMAR. HR 100'S AND SINUS TACH/SR. 02 SATS HAVE BEEN >90% ON RA, >94% ON 2 L. CURRENTLY ON RA. PATIENT IS A 1P SBA W FWW TO BATHROOM AND CAN REPOSITION SELF IN BED. DENIES CHEST PAIN PRESSURE/SOB AT THIS TIME. FOLLEY CATHETER IN PLACE DRAINING TO GRAVITY. PLAN TO DISCHARGE WITH CHICAS ACCORDINGLY. PATIENT REPOSITIONED TO RECLINER AND BACK TO BED LATER IN SHIFT. ULTRASOUND OF LEFT UPPER ARM WAS POSITIVE FOR DVT. PROVIDER NOTIFIED. MEDICATED PER EMAR. PATIENT RESTING COMFORTABLY IN BED IN LOWEST POSITION WITH CALL LIGHT IN REACH.
[2025-07-17 19:29] VITALS: BP 112/57
[2025-07-17 23:21] VITALS: BP 99/56
[2025-07-18 05:42] VITALS: BP 102/67
--- NOTE | 2025-07-18 05:46 | NUR ---
SHIFT SUMMARY THIS RN ASSUMED CARE OF PATIENT AT 1900. PT A&O X4. ABLE TO MAKE NEEDS KNOWN. BP STABLE WITH MAP >65, MIDODRINE GIVEN PER EMAR. ON RA WHILE AWAKE, NEEDING 2L VIA NC WHILE SLEEPING TO MAINTAIN SPO2. SR/ST ON TELE. OVERNIGHT SLEEP OXIMETRY STUDY IN PROGRESS CURRENTLY. PT SBA TO BATHROOM. CHICAS CATHETER PATENT AND DRAINING TO GRAVITY. BED IN LOWEST POSITION AND CALL LIGHT WITHIN REACH. THIS RN WILL REPORT TO ONCOMING DAYSHIFT RN.
[2025-07-18 06:45] LABS: BASOPHILS ABSOLUTE AUTO 0.01 K/mm3 (0.00-0.23); BASOPHILS PERCENT AUTO 0 % (0-2); EOSINOPHILS ABSOLUTE AUTO 0.31 K/mm3 (0.00-0.68); EOSINOPHILS PERCENT AUTO 5 % (0-6); Hematocrit 29.4 % (37.0-53.0); Hemoglobin 10.0 g/dL (13.5-17.5); IMMATURE GRAN ABSOLUTE AUTO 0.01 K/mm3 (0.00-0.10); IMMATURE GRAN PERCENT AUTO 0 % (0-1); LYMPHOCYTES ABSOLUTE AUTO 1.06 K/mm3 (0.84-5.20); LYMPHOCYTES PERCENT AUTO 18 % (21-46); MONOCYTES ABSOLUTE AUTO 0.47 K/mm3 (0.16-1.47); MONOCYTES PERCENT AUTO 8 % (4-13); Mean Corpuscular HGB Conc 34.0 g/dL (31.5-36.5); Mean Corpuscular Volume 93 fL (80-100); NEUTROPHILS ABSOLUTE AUTO 4.03 K/mm3 (1.96-9.15); NEUTROPHILS PERCENT AUTO 68 % (41-73); NRBC ABSOLUTE 0.00 K/mm3 (0.00-0.02); NRBC Auto 0.0 /100 WBC (0.0-0.2); Platelet Count 104 K/mm3 (150-400); RDW Coefficient Variation 12.4 % (11.7-14.2); RDW Standard Deviation 42.3 fL (35.1-46.3)
[2025-07-18 07:06] LABS: Alanine Aminotransfer (ALT/SGP 31.0 U/L (12-78); Albumin, Blood 2.6 g/dL (3.4-5.0); Albumin/Globulin Ratio 0.8 (0.8-1.8); Anion Gap 7.0 mmol/L (3-11); Aspartate Aminotrans (AST/SGOT 20.0 U/L (12-37); Bilirubin, Total 0.6 mg/dL (0.1-1.0); Blood Urea Nitrogen 23.0 mg/dL (8-24); CO2, Blood 24.0 mmol/L (21-32); Calcium, Blood 8.0 mg/dL (8.5-10.1); Chloride, Blood 114.0 mmol/L (98-108); Creatinine, Blood 1.98 mg/dL (0.60-1.20); Globulin, Blood 3.2 g/dL (2.2-4.0); Glucose, Blood 112.0 mg/dL (70-99); Magnesium, Blood 1.2 mg/dL (1.6-2.4); Phosphorus, Blood 2.6 mg/dL (2.5-4.9); Potassium, Blood 3.7 mmol/L (3.5-5.5); Sodium, Blood 141.0 mmol/L (136-145); Total Protein, Blood 5.8 g/dL (6.4-8.2)
[2025-07-18] MEDS ORDERED: METOPROLOL TART5010 PO (07:20)
[2025-07-18 08:04] VITALS: BP 111/62
[2025-07-18] MEDS ORDERED: Magnesium Sulf 2 GM/Water 50ML 50 ML IV STA (08:37)
[2025-07-18] MEDS ORDERED: Mag Sulfate 1 GM/D5% 100ML 100 ML IV STA (08:38)
[2025-07-18 10:56] VITALS: BP 119/63
[2025-07-18] MEDS ORDERED: ELIQUIS2.5 MG PO (11:51)
[2025-07-18] MEDS ORDERED: MIDO5 PO (11:52)
[2025-07-18] MEDS ORDERED: MAGNESIUM OXID500 MG PO (11:52)
[2025-07-18] MEDS ORDERED: Flomax0.4 MG PO (11:53)
[2025-07-18 12:41] VITALS: BP 111/62
--- NOTE | 2025-07-18 14:34 | NUR ---
SHIFT SUMMARY/DISCHARGE PATIENT WAS AOX4 T/O SHIFT. SBP WAS >100-120, MAP >65. HR WAS 120'S-100'S. PROVIDER AWARE, MEDICATED PER EMAR. O2 SATS >94% ON 2L INITIALLY, THEN SWITCHED TO RA. DENIES SOB/CHEST PAIN/PRESSURE. PATIENT HAD SHOWER TODAY. HE IS SBA WITH FWW TO COMMODE/BATHROOM. CHICAS CATHETER IN PLACE, PREPARE FOR DISCHARGE WITH CATHETER. MAGNESIUM WAS LOW, PROVIDER AWARE, MEDICATED PER EMAR. DISCHARGE ORDERS PLACED BY PROVIDER. DISCHARGE EDUCATION PROVIDED BEDSIDE. PATIENT WAS AGREEABLE AND HAD NO FURTHER QUESTIONS. SWITCHED CATH BAG TO LEG BAG. PATIENT WAS WHEELED OUT IN WHEELCHAIR BY AIDE.
== END 2025-07-18 13:42 | disposition home health service (06) | DRG 683 ==
LOC: ER 15:57 → ICUE 18:40 → ERHOLD 18:40 → PCU 21:09 → ICUE 07-14 02:35 → PCU 07-16 13:28
PROVIDERS: Hospitalist; Physician Assistant; Student in an Organized Health Care Education/Training Program; ADMIT Internal Medicine
PROC: 0T9B70Z Drainage of Bladder with Drainage Device, Via Natural or Artificial Opening (ICD-10-PCS; principal; 2025-07-13)
PROC: 3E033XZ Introduction of Vasopressor into Peripheral Vein, Percutaneous Approach (ICD-10-PCS; 2025-07-14)
DX: N17.9 Acute kidney failure, unspecified (principal); E87.0 Hyperosmolality and hypernatremia; E87.1 Hypo-osmolality and hyponatremia; E87.20 Acidosis, unspecified; R57.9 Shock, unspecified; J44.1 Chronic obstructive pulmonary disease with (acute) exacerbation; I82.622 Acute embolism and thrombosis of deep veins of left upper extremity; K52.1 Toxic gastroenteritis and colitis; Z66 Do not resuscitate; N18.4 Chronic kidney disease, stage 4 (severe); E11.22 Type 2 diabetes mellitus with diabetic chronic kidney disease; I12.9 Hypertensive chronic kidney disease with stage 1 through stage 4 chronic kidney disease, or unspecified chronic kidney disease; E83.42 Hypomagnesemia; D63.1 Anemia in chronic kidney disease; I44.0 Atrioventricular block, first degree; N13.2 Hydronephrosis with renal and ureteral calculous obstruction; N40.1 Benign prostatic hyperplasia with lower urinary tract symptoms; T38.3X5A Adverse effect of insulin and oral hypoglycemic [antidiabetic] drugs, initial encounter; N32.0 Bladder-neck obstruction; E86.0 Dehydration; R33.8 Other retention of urine; E87.5 Hyperkalemia; Z79.899 Other long term (current) drug therapy; Z79.84 Long term (current) use of oral hypoglycemic drugs; Z88.0 Allergy status to penicillin; Z85.118 Personal history of other malignant neoplasm of bronchus and lung; Z87.19 Personal history of other diseases of the digestive system; Z98.42 Cataract extraction status, left eye; Z87.891 Personal history of nicotine dependence; Z79.4 Long term (current) use of insulin; Z79.891 Long term (current) use of opiate analgesic; Z86.19 Personal history of other infectious and parasitic diseases; Z92.21 Personal history of antineoplastic chemotherapy; Z92.3 Personal history of irradiation
CPT/HCPCS: 36415; 51702; 74176; 76770; 80047; 80048; 80053; 80069; 82533; 82784; 82947; 83521; 83540; 83550; 83735; 84100; 84155; 84165; 85014; 85025; 86334; 87637; 93005; 93010; 93971; 94760; 94762; 96361; 96374; 97110; 97116; 97161; 97165; 97530; 97535; 99285-25; A9270; J0612; J1815; J2405; J3475; J7030; J7050

== ENCOUNTER 2025-08-07 11:07 | Emergency (ER) | payer OTHER ==
[~2025-08-07] VITALS: Ht 182.9 cm; Wt 79.4 kg
[~2025-08-07 11:07] MED LIST changes: +BASAGLAR K100 UNIT/3 SC; +ELIQUIS2.5 MG PO; +Flomax0.4 MG PO; +MAGNESIUM OXID500 MG PO; +METFORMIN HCL1000 MG PO; +METOPROLOL TART5010 PO; +MIDO5 PO
[2025-08-07 11:35] LABS: BASOPHILS ABSOLUTE AUTO 0.01 K/mm3 (0.00-0.23); BASOPHILS PERCENT AUTO 0 % (0-2); EOSINOPHILS ABSOLUTE AUTO 0.48 K/mm3 (0.00-0.68); EOSINOPHILS PERCENT AUTO 7 % (0-6); Hematocrit 30.4 % (37.0-53.0); Hemoglobin 9.6 g/dL (13.5-17.5); IMMATURE GRAN ABSOLUTE AUTO 0.01 K/mm3 (0.00-0.10); IMMATURE GRAN PERCENT AUTO 0 % (0-1); LYMPHOCYTES ABSOLUTE AUTO 1.82 K/mm3 (0.84-5.20); LYMPHOCYTES PERCENT AUTO 25 % (21-46); MONOCYTES ABSOLUTE AUTO 0.49 K/mm3 (0.16-1.47); MONOCYTES PERCENT AUTO 7 % (4-13); Mean Corpuscular HGB Conc 31.6 g/dL (31.5-36.5); Mean Corpuscular Volume 96 fL (80-100); NEUTROPHILS ABSOLUTE AUTO 4.46 K/mm3 (1.96-9.15); NEUTROPHILS PERCENT AUTO 62 % (41-73); NRBC ABSOLUTE 0.00 K/mm3 (0.00-0.02); NRBC Auto 0.0 /100 WBC (0.0-0.2); Platelet Count 128 K/mm3 (150-400); RDW Coefficient Variation 12.5 % (11.7-14.2); RDW Standard Deviation 43.2 fL (35.1-46.3)
[2025-08-07 11:52] LABS: Alanine Aminotransfer (ALT/SGP 66.0 U/L (12-78); Albumin, Blood 2.6 g/dL (3.4-5.0); Albumin/Globulin Ratio 0.8 (0.8-1.8); Anion Gap 8.0 mmol/L (3-11); Aspartate Aminotrans (AST/SGOT 36.0 U/L (12-37); Bilirubin, Total 0.3 mg/dL (0.1-1.0); Blood Urea Nitrogen 32.0 mg/dL (8-24); CO2, Blood 19.0 mmol/L (21-32); Calcium, Blood 7.0 mg/dL (8.5-10.1); Chloride, Blood 118.0 mmol/L (98-108); Creatinine, Blood 1.3 mg/dL (0.60-1.20); Globulin, Blood 3.2 g/dL (2.2-4.0); Glucose, Blood 121.0 mg/dL (70-99); Potassium, Blood 3.4 mmol/L (3.5-5.5); Sodium, Blood 142.0 mmol/L (136-145); Total Protein, Blood 5.8 g/dL (6.4-8.2)
[2025-08-07 13:11] LABS: Source, Urine Voided
[2025-08-07 13:16] LABS: Bilirubin, Urine Neg (Neg); Color, Urine Yellow (P-Yellow); Glucose Qualitative, Urine Neg (Neg); Ketones, Urine Neg (Neg); Leukocyte Esterase, Urine 3+ (Neg); Protein, Urine 2+ (Neg); Specific Gravity, Urine 1.020 (1.003-1.022); Urobilinogen, Urine NORM (Normal)
[2025-08-07 13:35] LABS: Red Blood Cells, Urine 0-2 /hpf (0-2)
[2025-08-07 14:26] LABS: Source, Urine Foley catheter
[2025-08-07 14:50] LABS: Bilirubin, Urine Neg (Neg); Color, Urine Yellow (P-Yellow); Glucose Qualitative, Urine Neg (Neg); Ketones, Urine Neg (Neg); Leukocyte Esterase, Urine 2+ (Neg); Protein, Urine 2+ (Neg); Specific Gravity, Urine 1.020 (1.003-1.022); Urobilinogen, Urine NORM (Normal)
[2025-08-07] MEDS ORDERED: DOXYCYCLINE HY100 M1 PO (15:11)
[2025-08-07] MEDS ORDERED: SULFAMETHOXAZO1 EAC1 PO (15:12)
[2025-08-07 16:15] VITALS: BP 107/56
== END 2025-08-07 16:27 | disposition home or self-care (01) ==
LOC: ER 11:07
PROVIDERS: Emergency Medicine
DX: I95.9 Hypotension, unspecified (principal); I10 Essential (primary) hypertension; E11.9 Type 2 diabetes mellitus without complications; Z88.0 Allergy status to penicillin; Z79.4 Long term (current) use of insulin; Z79.01 Long term (current) use of anticoagulants; Z79.899 Other long term (current) drug therapy; Z87.891 Personal history of nicotine dependence
CPT/HCPCS: 51702; 80053; 81001; 83605; 85025; 87077; 87086; 87186; 99284